=== PATIENT | female | born 1975 | race Caucasian/White ===

== ENCOUNTER 2016-11-13 15:14 | Emergency (ER) | payer MEDICAID ==
[2016-11-13] MEDS ORDERED: Sodium Chloride 0.9% 500 ML IV ONE (15:40)
[2016-11-13] MEDS ORDERED: Sodium Chloride 0.9% 10 ML Syringe FLUSH PRN (15:40)
--- NOTE | 2016-11-13 16:35 | EDM.PDOC ---
ED HPI GENERAL MEDICAL PROBLEM - General Chief Complaint: Neurological Problem Stated Complaint: [facility] Time Seen by Provider: 11/13/16 15:31 Source of Information: Reports: Patient, EMS, RN Notes Reviewed - History of Present Illness INITIAL COMMENTS - FREE TEXT/NARRATIVE: 41-year-old female has been brought in by ambulance after having suffered a seizure while at work. At the time EMS arrived she was on the floor in a position. She was somewhat confused. Mental status did gradually clear while in route here to our ED. Staff at work stated that she did suffer a seizure of fairly short duration. Patient does not recall any of this. 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 She does have a history of known seizure disorder. Her last seizure was about one year ago. Her seizure medication dosage was increased upward very mildly at that time. She has not been recently ill. No recent vomiting diarrhea or other unusual prior symptoms. She does have mild headache. No chest pain or difficulty breathing. No major discomfort upper or lower extremities. - Related Data Allergies Allergy/AdvReac Type Severity Reaction Status Date / Time z-pac Allergy Shortness Uncoded 11/13/16 15:32 of Breath Home Meds: Home Meds . [No Known Home Meds] 11/13/16 [History] ARIPiprazole [Abilify] 2 mg PO DAILY 11/13/16 [History] Citalopram Hydrobromide [Celexa] 40 mg PO DAILY 11/13/16 [History] Meloxicam 0 mg PO DAILY 11/13/16 [History] Omeprazole 20 mg PO DAILY 11/13/16 [History] hydrOXYzine HCl [Atarax] 25 mg PO BEDTIME PRN 11/13/16 [History] lamoTRIgine [Lamotrigine] 200 mg PO DAILY 11/13/16 [History] lamoTRIgine [Lamotrigine] 300 mg PO BEDTIME 11/13/16 [History] traMADol [Ultram] 50 mg PO Q6H PRN 11/13/16 [History] traZODone 100 mg PO BEDTIME 11/13/16 [History] Past Medical History Gastrointestinal History: Reports: GERD Neurological History: Reports: Seizure Psychiatric History: Reports: Anxiety, Depression - Past Surgical History HEENT Surgical History: Reports: Tonsillectomy Female Surgical History: Reports: Section Social & Family History - Tobacco Use Smoking Status *Q: Never Smoker - Caffeine Use Caffeine Use: Reports: Soda - Recreational Drug Use Recreational Drug Use: No ED ROS GENERAL - Review of Systems Review Of Systems: See Below Constitutional: Denies: Fever, Chills HEENT: Reports: No Symptoms Respiratory: Denies: Shortness of Breath, Pleuritic Chest Pain Cardiovascular: Denies: Chest Pain GI/Abdominal: Denies: Abdominal Pain, Nausea, Vomiting Musculoskeletal: Denies: Neck Pain, Shoulder Pain, Back Pain, Joint Pain Skin: Reports: No Symptoms Neurological: Reports: Dizziness, Headache (Mild, improving), Other (Patient was confused initially, that has resolved). Denies: Numbness, Tingling, Trouble Speaking - Physical Exam Exam: See Below General Appearance: Alert, No Apparent Distress Eye Exam: Bilateral Eye: PERRL Ears: Normal External Exam Throat/Mouth: Normal Inspection, Normal Oropharynx. No: Evidence of Tongue Biting Head Exam: Atraumatic. No: Facial Swelling, Facial Tenderness Neck: Supple, Full Range of Motion Respiratory/Chest: Lungs Clear, Normal Breath Sounds Cardiovascular: Regular Rate, Rhythm GI/Abdominal: Soft, Non-Tender Neuro Exam (Abbreviated): Alert, Oriented, No Motor/Sensory Deficits Back Exam: Normal Inspection Extremities: Normal Inspection, Normal Range of Motion Skin Exam: Warm, Dry, Normal Color Course - Vital Signs Last Recorded V/S: Last Vital Signs Temp 97.7 F 11/13/16 15:16 Pulse 108 H 11/13/16 15:16 Resp 20 11/13/16 15:20 BP 141/50 H 11/13/16 15:16 Pulse Ox 96 11/13/16 15:20 - Orders/Labs/Meds Orders: Active Orders 24 hr Category Date Time Status Peripheral IV Care [RC] . DIRECTED Care 11/13/16 15:40 Active Sodium Chloride 0.9% [Saline Flush] Med 11/13/16 15:40 Active 10 ml FLUSH ASDIRECTED PRN Peripheral IV Insertion Adult [OM.PC] Stat Oth 11/13/16 15:40 Ordered Medication Orders Sodium Chloride (Saline Flush) 10 ml FLUSH ASDIRECTED PRN PRN Reason: Keep Vein Open Last Admin: 11/13/16 16:03 Dose: 10 ml Labs: Laboratory Tests 11/13/16 11/13/16 Range/Units 15:50 15:50 WBC 7.20 (3.98-10.04) K/mm3 RBC 4.30 (3.98-5.22) M/mm3 Hgb 11.4 (11.2-15.7) gm/L Hct 36.5 (34.1-44.9) % MCV 84.9 (79.4-94.8) fl MCH 26.5 (25.6-32.2) pg MCHC 31.2 L (32.2-35.5) g/dl RDW Std Deviation 39.8 (36.4-46.3) fL Plt Count 205 (182-369) K/mm3 MPV 9.3 L (9.4-12.3) fl Neut % (Auto) 78.4 H (34.0-71.1) % Lymph % (Auto) 14.3 L (19.3-51.7) % [place] % (Auto) 6.5 (4.7-12.5) % Eos % (Auto) 0 L (0.7-5.8) Baso % (Auto) 0.7 (0.1-1.2) % Neut # (Auto) 5.64 (1.56-6.13) K/mm3 Lymph # (Auto) 1.03 L (1.18-3.74) K/mm3 [place] # (Auto) 0.47 H (0.24-0.36) K/mm3 Eos # (Auto) 0.00 L (0.04-0.36) K/mm3 Baso # (Auto) 0.05 (0.01-0.08) K/mm3 Sodium 140 (136-145) mEq/L Potassium 3.9 (3.5-5.1) mEq/L Chloride 105 (98-107) mEq/L Carbon Dioxide 28 (21-32) mEq/L Anion Gap 10.9 (5-15) BUN 7 (7-18) mg/dL Creatinine 1.1 H (0.55-1.02) mg/dL Est Cr Clr Drug Dosing 62.37 mL/min Estimated GFR (MDRD) 54 (>60) mL/min BUN/Creatinine Ratio 6.4 L (14-18) Glucose 119 H (74-106) mg/dL Calcium 8.3 L (8.5-10.1) mg/dL Total Bilirubin 0.3 (0.2-1.0) mg/dL AST 20 (15-37) U/L ALT 28 (14-59) U/L Alkaline Phosphatase 46 (46-116) U/L Total Protein 6.3 L (6.4-8.2) g/dl Albumin 3.4 (3.4-5.0) g/dl Globulin 2.9 gm/dL Albumin/Globulin Ratio 1.2 (1-2) Meds: Medications Generic Name Dose Route Start Last Admin Trade Name Freq PRN Reason Stop Dose Admin Sodium Chloride 10 ml 11/13/16 15:40 11/13/16 16:03 Saline Flush FLUSH 10 ml ASDIRECTED PRN Administration Keep Vein Open Discontinued Medications Generic Name Dose Route Start Last Admin Trade Name Freq PRN Reason Stop Dose Admin Sodium Chloride 500 mls @ 999 mls/hr 11/13/16 15:40 11/13/16 16:05 Normal Saline IV 11/13/16 16:10 600 mls/hr .BOLUS ONE Infusion - Re-Assessments/Exams Free Text/Narrative Re-Assessment/Exam: 11/13/16 16:35 Labs are all relatively fine. She and her family have recently moved here to the [facility]. She states she needs neurology referral. I will provide a general referral for neurology follow-up. It is Monday. They will need to call tomorrow to get that set up. Departure - Departure Time of Disposition: 16:35 Disposition: Home, Self-Care 01 Condition: Fair Clinical Impression: Seizure - Discharge Information Forms: ED Department Discharge, Return to Work/School Form Additional Instructions: Rest, it is not recommended you work tomorrow. You are medically cleared to return to work Monday. Continue current medications as prescribed. See a Neurologist [facility] as soon as possible. Call [phone] for appointment - My Orders Last 24 Hours: My Active Orders 11/13/16 15:40 Peripheral IV Care [RC] . DIRECTED Sodium Chloride 0.9% [Saline Flush] 10 ml FLUSH ASDIRECTED PRN Peripheral IV Insertion Adult [OM.PC] Stat - Assessment/Plan Last 24 Hours: My Active Orders 11/13/16 15:40 Peripheral IV Care [RC] . DIRECTED Sodium Chloride 0.9% [Saline Flush] 10 ml FLUSH ASDIRECTED PRN Peripheral IV Insertion Adult [OM.PC] Stat
[2016-11-13] MEDS ORDERED: Acetaminophen 325 MG Tab PO ONE (16:59)
[2016-11-13] MEDS ORDERED: Ondansetron 4 MG/2 ML SDV IVPUSH ONE (16:59)
[2016-11-13 17:58] VITALS: BP 120/58
== END 2016-11-13 17:40 | disposition home or self-care (01) ==
LOC: JD.ED 15:14
DX: R56.9 Unspecified convulsions (principal); K21.9 Gastro-esophageal reflux disease without esophagitis; Z79.899 Other long term (current) drug therapy; Z98.890 Other specified postprocedural states; Z88.1 Allergy status to other antibiotic agents
CPT/HCPCS: 36415; 80053; 85025; 96361; 96374; 99285; A9270; J2405; J7040; J7050; 99284

== ENCOUNTER 2017-01-11 19:35 | Emergency (ER) | payer MEDICAID ==
[2017-01-11 19:57] VITALS: BP 119/60
--- NOTE | 2017-01-11 20:50 | EDM.PDOC ---
ED HPI GENERAL MEDICAL PROBLEM - General Chief Complaint: Chest Pain Stated Complaint: [facility] Time Seen by Provider: 01/11/17 19:47 Source of Information: Reports: Patient, Family (, [id number]), RN Notes Reviewed History Limitations: Reports: No Limitations - History of Present Illness INITIAL COMMENTS - FREE TEXT/NARRATIVE: The patient states that she developed left anterior chest pain that extended to the left axilla last night. Initially it was sharp, but has become more of an ache. The pain would come and go. The pain is not pleuritic, and the patient has not identified any modifiers. She has had nausea, and vomited last night. She reports dyspnea, but no cough, and no fever. She states that she took 400 mg ibuprofen around 20:00 last night. The patient was also experiencing a migraine headache, and took 10 mg rizatriptan at 14:00 and 16:30 today. This has resulted in a slight improvement of her headache. No prior similar symptoms. The patient does not have a PCP. Her Neurologist is in [place]. 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 Left Chest Pain Score (Numeric/FACES): 7 - Related Data Allergies Allergy/AdvReac Type Severity Reaction Status Date / Time z-pac Allergy Shortness Uncoded 01/11/17 19:46 of Breath Home Meds: Home Meds Omeprazole 40 mg PO DAILY 11/13/16 [History] hydrOXYzine HCl [Atarax] 25 mg PO BEDTIME PRN 11/13/16 [History] lamoTRIgine [Lamotrigine] 200 mg PO BID 11/13/16 [History] traZODone 100 mg PO BEDTIME 11/13/16 [History] ARIPiprazole [Abilify] 2 mg PO DAILY 01/11/17 [History] Citalopram Hydrobromide [Celexa] 40 mg PO DAILY 01/11/17 [History] traMADol HCl [Tramadol HCl] 50 mg PO ASDIRECTED PRN 01/11/17 [History] Past Medical History Gastrointestinal History: Reports: GERD, PUD Genitourinary History: Reports: Urinary Incontinence Musculoskeletal History: Reports: Fracture Neurological History: Reports: Migraines, Seizure Psychiatric History: Reports: Anxiety, Depression - Past Surgical History HEENT Surgical History: Reports: Tonsillectomy Female Surgical History: Reports: Section (x 1), Hysterectomy Musculoskeletal Surgical History: Reports: Other (See Below) (Left femur drake) Social & Family History - Tobacco Use Smoking Status *Q: Never Smoker Second Hand Smoke Exposure: No - Caffeine Use Caffeine Use: Reports: Soda - Alcohol Use Alcohol Use History: Yes Alcohol Use Frequency: Socially - Recreational Drug Use Recreational Drug Use: No - Living Situation & Occupation Living situation: Reports: , with Spouse Occupation: Employed ([employer]) ED ROS GENERAL - Review of Systems Review Of Systems: See Below Constitutional: Reports: No Symptoms HEENT: Reports: No Symptoms Respiratory: Reports: No Symptoms Cardiovascular: Reports: No Symptoms Endocrine: Reports: No Symptoms GI/Abdominal: Reports: Constipation (chronic) : Reports: No Symptoms Musculoskeletal: Reports: No Symptoms Skin: Reports: No Symptoms Neurological: Reports: No Symptoms Psychiatric: Reports: No Symptoms Hematologic/Lymphatic: Reports: No Symptoms Immunologic: Reports: No Symptoms ED EXAM, GENERAL - Physical Exam Exam: See Below Exam Limited By: No Limitations General Appearance: Alert, WD/WN, No Apparent Distress Eye Exam: Bilateral Eye: Normal Inspection Ears: Normal External Exam, Hearing Grossly Normal Nose: Normal Inspection, No Blood Throat/Mouth: Normal Inspection, Normal Lips, Normal Voice, No Airway Compromise Head: Atraumatic, Normocephalic Neck: Normal Inspection, Full Range of Motion Respiratory/Chest: No Respiratory Distress, Lungs Clear, Normal Breath Sounds, No Accessory Muscle Use, Other (Reproducible tenderness to palpation of the left pectoralis muscle, extending to the left axilla. Pain is also reproduced with the patient flexing her pectoralis muscle against outstretched hands, and crossing her left upper extremity across her chest.) Cardiovascular: Normal Peripheral Pulses, Regular Rate, Rhythm, No Gallop, No JVD, No Murmur, No Rub Peripheral Pulses: 4+: Radial (L), Radial (R) GI/Abdominal: Normal Bowel Sounds, Soft, Non-Tender, No Organomegaly, No Distention, No Abnormal Bruit, No Mass (Female) Exam: Deferred Rectal (Female) Exam: Deferred Back Exam: Normal Inspection, Full Range of Motion, NT Extremities: Normal Inspection, Normal Range of Motion, No Pedal Edema, Normal Capillary Refill Neurological: Alert, Oriented, Normal Cognition, Other (Dysarthric speech) Psychiatric: Normal Affect Skin Exam: Warm, Dry, Intact, Normal Color, No Rash EKG INTERPRETATION EKG Date: 01/11/17 Time: 19:41 Rhythm: NSR Rate (Beats/Min): 73 [place]: Normal P-Wave: Present QRS: Normal ST-T: Normal QT: Normal Comparison: NA - No Prior EKG Course - Vital Signs Last Recorded V/S: Last Vital Signs Temp 37.1 C 01/11/17 19:53 Pulse 75 01/11/17 19:53 Resp 15 01/11/17 19:53 BP 119/60 01/11/17 19:53 Pulse Ox 99 01/11/17 19:53 - Orders/Labs/Meds Orders: Active Orders 24 hr Category Date Time Status EKG Documentation Completion [RC] STAT Care 01/11/17 20:20 Active Chest 2V [CR] Stat Exams 01/11/17 20:39 Taken - Re-Assessments/Exams Free Text/Narrative Re-Assessment/Exam: 01/11/17 21:24 Two-view chest radiograph appears to be grossly normal. Cardiac silhouette is within normal limits. No pulmonary vascular congestion. No pleural effusions. No focal infiltrate. No pneumothorax. Hyperinflation and moderate bilateral diaphragmatic flattening, consistent with COPD, noted. Formal read per the Radiologist pending. 01/11/17 21:31 Test results discussed with the patient, her , and [id number]. Today' s evaluation finds that the patient has left sided chest pain of musculoskeletal etiology. I'm recommending ibuprofen. Departure - Departure Time of Disposition: 21:31 Disposition: Home, Self-Care 01 Condition: Good Clinical Impression: Musculoskeletal chest pain - Discharge Information Instructions: Nonspecific Chest Pain Referrals: PCP,None [Primary Care Provider] - Forms: ED Department Discharge Additional Instructions: You were seen in the emergency room for left-sided chest pain. Workup in the ER included an ECG and a chest x-ray. Your workup was normal. Your pain is not caused by your heart. You do not have pneumonia, or a collapsed lung. Based on your history and physical examination, your chest pain is due to muscle pain on the left side of your chest. We recommend you take [id number] Tylenol or ibuprofen as needed for discomfort. If any other problems, please do not hesitate to return to the ER. - My Orders Last 24 Hours: My Active Orders 01/11/17 20:20 EKG Documentation Completion [RC] STAT 01/11/17 20:39 Chest 2V [CR] Stat - Assessment/Plan Last 24 Hours: My Active Orders 01/11/17 20:20 EKG Documentation Completion [RC] STAT 01/11/17 20:39 Chest 2V [CR] Stat
--- NOTE | 2017-01-12 08:24 | CR ---
Chest: Two views of the chest were obtained. Comparison: No previous chest x-ray. Heart size and mediastinum are within normal limits. Lungs are clear. Bony structures are within normal limits for the patient's age. Impression: 1. Nothing acute is identified on two-view chest x-ray. Diagnostic code #1
== END 2017-01-11 21:59 | disposition home or self-care (01) ==
LOC: JD.ED 19:35
DX: R07.89 Other chest pain (principal); F32.9 Major depressive disorder, single episode, unspecified; K21.9 Gastro-esophageal reflux disease without esophagitis; Z90.710 Acquired absence of both cervix and uterus; Z98.890 Other specified postprocedural states; Z79.899 Other long term (current) drug therapy; Z88.1 Allergy status to other antibiotic agents
CPT/HCPCS: 71020; 71020-26; 93005; 99284; 99285

== ENCOUNTER 2017-02-20 18:06 | Emergency (ER) | payer BC, MEDICAID ==
[2017-02-20 18:14] VITALS: BP 143/77
[2017-02-20] MEDS ORDERED: Sodium Chloride 0.9% 10 ML Syringe FLUSH PRN (18:32)
[2017-02-20] MEDS ORDERED: Prochlorperazine 10 MG/2 ML SDV IVPUSH ONE (18:33)
[2017-02-20] MEDS ORDERED: Ketorolac 30 MG/ML SDV IVPUSH ONE (18:33)
[2017-02-20] MEDS ORDERED: diphenhydrAMINE 50 MG/ML SDV IVPUSH ONE (18:34)
--- NOTE | 2017-02-20 19:10 | EDM.PDOC ---
ED HPI GENERAL MEDICAL PROBLEM - General Chief Complaint: Neurological Problem Stated Complaint: [facility] Time Seen by Provider: 02/20/17 18:22 Source of Information: Reports: Patient, EMS, Family History Limitations: Reports: No Limitations - History of Present Illness INITIAL COMMENTS - FREE TEXT/NARRATIVE: The patient presents after a seizure. She was at work and she did not feel well. She had a tonic clonic seizure lasting a few minutes. She recovered fairly quickly. She has a history of seizures. She is on lamictal 200mg in the morning and 300mg in the evening. She has not missed a dose. She has not been ill. She has no fever, chills, cough, congestion or runny nose. She does have a migraine. She has a history of these and sometimes she will get these before or after a seizure. She has no chest pain or shortness of breath. She is getting enough sleep. She does not drink much and she did not drink recently. Onset: Sudden Duration: Hour(s): Location: Reports: Generalized Quality: Reports: Other (shakine) Severity: Moderate Improves with: Reports: None Worsens with: Reports: None Associated Symptoms: Reports: Headaches. Denies: Chest Pain, Fever/Chills, Nausea/Vomiting, Shortness of Breath Headache Pain Score (Numeric/FACES): 8 - Related Data Allergies Allergy/AdvReac Type Severity Reaction Status Date / Time z-pac Allergy Shortness Uncoded 01/11/17 19:46 of Breath Home Meds: Home Meds Omeprazole 40 mg PO DAILY 11/13/16 [History] hydrOXYzine HCl [Atarax] 25 mg PO BEDTIME PRN 11/13/16 [History] lamoTRIgine [Lamotrigine] 200 mg PO BID 11/13/16 [History] traZODone 100 mg PO BEDTIME 11/13/16 [History] ARIPiprazole [Abilify] 2 mg PO DAILY 01/11/17 [History] Citalopram Hydrobromide [Celexa] 40 mg PO DAILY 01/11/17 [History] traMADol HCl [Tramadol HCl] 50 mg PO ASDIRECTED PRN 01/11/17 [History] Past Medical History Gastrointestinal History: Reports: GERD, PUD Genitourinary History: Reports: Urinary Incontinence Musculoskeletal History: Reports: Fracture Neurological History: Reports: Migraines, Seizure Psychiatric History: Reports: Anxiety, Depression - Past Surgical History HEENT Surgical History: Reports: Tonsillectomy Female Surgical History: Reports: Section, Hysterectomy Social & Family History - Family History Family Medical History: Noncontributory - Tobacco Use Smoking Status *Q: Never Smoker Second Hand Smoke Exposure: No - Caffeine Use Caffeine Use: Reports: Soda - Recreational Drug Use Recreational Drug Use: No - Living Situation & Occupation Living situation: Reports: , with Spouse Occupation: Employed ([employer]) ED [facility] GENERAL - Review of Systems Review Of Systems: See Below Constitutional: Reports: No Symptoms HEENT: Reports: No Symptoms Respiratory: Reports: No Symptoms Cardiovascular: Reports: No Symptoms Endocrine: Reports: No Symptoms GI/Abdominal: Reports: No Symptoms : Reports: No Symptoms Musculoskeletal: Reports: No Symptoms Neurological: Reports: Seizure - Physical Exam Exam: See Below Exam Limited By: No Limitations General Appearance: Alert, No Apparent Distress Ears: Normal External Exam Nose: Normal Inspection Head Exam: Atraumatic, Normocephalic Neck: Normal Inspection Respiratory/Chest: No Respiratory Distress, Lungs Clear, Normal Breath Sounds Cardiovascular: Regular Rate, Rhythm, No Edema, No Murmur GI/Abdominal: Soft, Non-Tender, No Organomegaly, No Mass Neuro Exam (Abbreviated): Alert, Oriented, No Motor/Sensory Deficits Course - Vital Signs Last Recorded V/S: Last Vital Signs Temp 97.6 F 02/20/17 18:11 Pulse 105 H 02/20/17 18:11 Resp 22 H 02/20/17 18:11 BP 143/77 H 02/20/17 18:11 Pulse Ox 99 02/20/17 18:11 - Orders/Labs/Meds Orders: Active Orders 24 hr Category Date Time Status Cardiac Monitoring [RC] . DIRECTED Care 02/20/17 18:32 Active Peripheral IV Care [RC] . DIRECTED Care 02/20/17 18:33 Active HYDROmorphone [Dilaudid] Med 02/20/17 19:28 Once 1 mg IVPUSH ONETIME ONE Sodium Chloride 0.9% [Saline Flush] Med 02/20/17 18:32 Active 10 ml FLUSH ASDIRECTED PRN Peripheral IV Insertion Adult [OM.PC] Stat Oth 02/20/17 18:32 Ordered Medication Orders Sodium Chloride (Saline Flush) 10 ml FLUSH ASDIRECTED PRN PRN Reason: Keep Vein Open Last Admin: 02/20/17 18:40 Dose: 10 ml Labs: Laboratory Tests 02/20/17 02/20/17 Range/Units 18:40 18:40 WBC 6.85 (3.98-10.04) K/mm3 RBC 4.33 (3.98-5.22) M/mm3 Hgb 12.0 (11.2-15.7) gm/L Hct 36.8 (34.1-44.9) % MCV 85.0 (79.4-94.8) fl MCH 27.7 (25.6-32.2) pg MCHC 32.6 (32.2-35.5) g/dl RDW Std Deviation 42.4 (36.4-46.3) fL Plt Count 263 (182-369) K/mm3 MPV 9.2 L (9.4-12.3) fl Neut % (Auto) 78.0 H (34.0-71.1) % Lymph % (Auto) 14.5 L (19.3-51.7) % [place] % (Auto) 5.4 (4.7-12.5) % Eos % (Auto) 1.6 (0.7-5.8) Baso % (Auto) 0.4 (0.1-1.2) % Neut # (Auto) 5.34 (1.56-6.13) K/mm3 Lymph # (Auto) 0.99 L (1.18-3.74) K/mm3 [place] # (Auto) 0.37 H (0.24-0.36) K/mm3 Eos # (Auto) 0.11 (0.04-0.36) K/mm3 Baso # (Auto) 0.03 (0.01-0.08) K/mm3 Sodium 144 (136-145) mEq/L Potassium 3.8 (3.5-5.1) mEq/L Chloride 106 (98-107) mEq/L Carbon Dioxide 23 (21-32) mEq/L Anion Gap 18.8 H (5-15) BUN 7 (7-18) mg/dL Creatinine 0.9 (0.55-1.02) mg/dL Est Cr Clr Drug Dosing 76.23 mL/min Estimated GFR (MDRD) > 60 (>60) mL/min BUN/Creatinine Ratio 7.8 L (14-18) Glucose 105 (74-106) mg/dL Calcium 8.4 L (8.5-10.1) mg/dL Magnesium 2.0 (1.8-2.4) mg/dl Total Bilirubin 0.2 (0.2-1.0) mg/dL AST 19 (15-37) U/L ALT 28 (14-59) U/L Alkaline Phosphatase 41 L (46-116) U/L Total Protein 6.9 (6.4-8.2) g/dl Albumin 3.9 (3.4-5.0) g/dl Globulin 3.0 gm/dL Albumin/Globulin Ratio 1.3 (1-2) Meds: Medications Generic Name Dose Route Start Last Admin Trade Name Freq PRN Reason Stop Dose Admin Sodium Chloride 10 ml 02/20/17 18:32 02/20/17 18:40 Saline Flush FLUSH 10 ml ASDIRECTED PRN Administration Keep Vein Open Discontinued Medications Generic Name Dose Route Start Last Admin Trade Name Freq PRN Reason Stop Dose Admin Diphenhydramine HCl 50 mg 02/20/17 18:34 02/20/17 18:41 Benadryl IVPUSH 02/20/17 18:35 50 mg ONETIME ONE Administration Ketorolac Tromethamine 30 mg 02/20/17 18:33 02/20/17 18:44 Toradol IVPUSH 02/20/17 18:34 30 mg ONETIME ONE Administration Prochlorperazine Edisylate 10 mg 02/20/17 18:33 02/20/17 18:47 Compazine IVPUSH 02/20/17 18:34 10 mg ONETIME ONE Administration - Re-Assessments/Exams Free Text/Narrative Re-Assessment/Exam: 02/20/17 19:22 I ordered an IV saline lock, toradol 30mg IV, benadryl 50mg IV, compazine 10mg IV and labs. Her CBC and CMP all look good. She has in appointment with a neurologist in about 1 month. 02/20/17 19:29 Her CBC and CMP look good. She still has a headache but it is a little better. I ordered dilaudid 1mg IV. I will discharge her home. I will not change her meds. I will see what the neurologist wants to do. Departure - Departure Time of Disposition: 19:35 Disposition: Home, Self-Care 01 Condition: Good Clinical Impression: Seizure Migraine Qualifiers: Migraine type: other Status migrainosus presence: without status migrainosus Intractability: not intractable Qualified Code(s): G43.809 - Other migraine, not intractable, without status migrainosus - Discharge Information Referrals: PCP,None [Primary Care Provider] - Sanjuana Fuentes MD [Physician] - Forms: ED Department Discharge Additional Instructions: Take your medication as prescribed but do not take any ultram or tramadol. That can cause seizures. Get plenty of rest and eat a balanced diet. Pleas return if you are worse. Follow up with Dr Fuentes. She is a family practice physician in out clinic within 1 week. Please keep your appointment with your neurologist in [place]. It is very hard to get into one. - My Orders Last 24 Hours: My Active Orders 02/20/17 18:32 Cardiac Monitoring [RC] . DIRECTED Sodium Chloride 0.9% [Saline Flush] 10 ml FLUSH ASDIRECTED PRN Peripheral IV Insertion Adult [OM.PC] Stat 02/20/17 18:33 Peripheral IV Care [RC] . DIRECTED 02/20/17 19:28 HYDROmorphone [Dilaudid] 1 mg IVPUSH ONETIME ONE - Assessment/Plan Last 24 Hours: My Active Orders 02/20/17 18:32 Cardiac Monitoring [RC] . DIRECTED Sodium Chloride 0.9% [Saline Flush] 10 ml FLUSH ASDIRECTED PRN Peripheral IV Insertion Adult [OM.PC] Stat 02/20/17 18:33 Peripheral IV Care [RC] . DIRECTED 02/20/17 19:28 HYDROmorphone [Dilaudid] 1 mg IVPUSH ONETIME ONE
[2017-02-20] MEDS ORDERED: HYDROmorphone 1 MG/ML Syringe IVPUSH ONE (19:28)
== END 2017-02-20 20:00 | disposition home or self-care (01) ==
LOC: JD.ED 18:06
DX: R56.9 Unspecified convulsions (principal); G43.809 Other migraine, not intractable, without status migrainosus; Z79.899 Other long term (current) drug therapy; K21.9 Gastro-esophageal reflux disease without esophagitis; F41.9 Anxiety disorder, unspecified; F32.9 Major depressive disorder, single episode, unspecified
CPT/HCPCS: 36415; 80053; 83735; 85025; 96374; 96375; 99284; J0780; J1170; J1200; J1885; J7050

== ENCOUNTER 2017-03-01 12:48 | Emergency (ER) | payer BC, MEDICAID ==
[2017-03-01 13:01] VITALS: BP 110/36
[2017-03-01] MEDS ORDERED: Sodium Chloride 0.9% 10 ML Syringe FLUSH PRN (13:19)
[2017-03-01] MEDS ORDERED: diphenhydrAMINE 50 MG/ML SDV IVPUSH ONE (13:19)
[2017-03-01] MEDS ORDERED: Ketorolac 30 MG/ML SDV IVPUSH ONE (13:19)
[2017-03-01] MEDS ORDERED: Metoclopramide 10 MG/2 ML SDV IVPUSH ONE (13:19)
[2017-03-01] MEDS ORDERED: Sodium Chloride 0.9% 1,000 ML IV ONE (13:20)
--- NOTE | 2017-03-01 14:24 | EDM.PDOC ---
ED HPI GENERAL MEDICAL PROBLEM - General Chief Complaint: Headache Stated Complaint: MIGRAINE Time Seen by Provider: 03/01/17 13:00 Source of Information: Reports: Patient History Limitations: Reports: No Limitations - History of Present Illness INITIAL COMMENTS - FREE TEXT/NARRATIVE: 41-year-old female presents for evaluation treatment of a migraine headache. Patient reports that she has had a "steady " migraine headache that started around 1900 last night. She states that she took some Tylenol last night without any relief. She has not taken anything today. She has a history of migraine headaches. Reports this is similar but does feel worse than normal. She reports associated symptoms of shortness of breath and chest pain. She denies any vision changes, vomiting or any recent seizures. Patient denies any recent fevers, cough or cold symptoms. Patient reports stressful situations seem to produce a migraines. Reports that she did feel stressed last measured close by herself. Patient has a past medical history of a seizure disorder. she has been taking her seizure medications as instructed. She has follow-up with neurology in one month. Headache Pain Score (Numeric/FACES): 10 - Related Data Allergies Allergy/AdvReac Type Severity Reaction Status Date / Time z-pac Allergy Shortness Uncoded 01/11/17 19:46 of Breath Home Meds: Home Meds Omeprazole 40 mg PO DAILY 11/13/16 [History] hydrOXYzine HCl [Atarax] 25 mg PO BEDTIME PRN 11/13/16 [History] lamoTRIgine [Lamotrigine] 300 mg PO BEDTIME 11/13/16 [History] traZODone 100 mg PO BEDTIME 11/13/16 [History] ARIPiprazole [Abilify] 2 mg PO DAILY 01/11/17 [History] Citalopram Hydrobromide [Celexa] 40 mg PO DAILY 01/11/17 [History] lamoTRIgine 200 mg PO DAILY 03/01/17 [History] Past Medical History Gastrointestinal History: Reports: GERD, PUD Genitourinary History: Reports: Urinary Incontinence Musculoskeletal History: Reports: Fracture Neurological History: Reports: Migraines, Seizure Psychiatric History: Reports: Anxiety, Depression - Past Surgical History HEENT Surgical History: Reports: Tonsillectomy Female Surgical History: Reports: Section, Hysterectomy Social & Family History - Family History Family Medical History: Noncontributory - Tobacco Use Smoking Status *Q: Never Smoker Second Hand Smoke Exposure: No - Caffeine Use Caffeine Use: Reports: Soda - Recreational Drug Use Recreational Drug Use: No - Living Situation & Occupation Living situation: Reports: , with Spouse Occupation: Employed ([employer]) ED ROS GENERAL - Review of Systems Review Of Systems: See Below Constitutional: Denies: Fever Respiratory: Reports: Shortness of Breath. Denies: Cough Cardiovascular: Reports: Chest Pain GI/Abdominal: Reports: Nausea. Denies: Vomiting Neurological: Reports: Headache. Denies: Seizure (non recently; hx of seizures) , Syncope - Physical Exam Exam: See Below Exam Limited By: No Limitations General Appearance: Alert, WD/WN, No Apparent Distress Eye Exam: Bilateral Eye: Normal Inspection, PERRL Ears: Normal External Exam, Normal Canal, Hearing Grossly Normal, Normal TMs Nose: Normal Inspection Throat/Mouth: Normal Inspection, Normal Lips, Normal Voice, No Airway Compromise Head Exam: Atraumatic, Normocephalic Neck: Normal Inspection, Full Range of Motion Respiratory/Chest: No Respiratory Distress, Lungs Clear, Normal Breath Sounds Cardiovascular: Normal Peripheral Pulses, Regular Rate, Rhythm, No Murmur Neuro Exam (Abbreviated): Alert, Oriented, Normal Cognition, Normal Gait, Other (normal heel to camara testing, normal finger to nose testing) Psychiatric: Normal Affect, Normal Mood Skin Exam: Warm, Dry, Normal Color EKG INTERPRETATION EKG Date: 03/01/17 Time: 13:25 Rhythm: NSR Rate (Beats/Min): 50 [place]: Normal P-Wave: Present QRS: Normal ST-T: Normal QT: Normal EKG Interpretation Comments: NSR at 50 bpm. No acute changes. Reviewed by myself and Dr. Najera. Course - Vital Signs Last Recorded V/S: Last Vital Signs Temp 36.4 C 03/01/17 12:55 Pulse 64 03/01/17 12:55 Resp 19 03/01/17 12:55 BP 110/36 L 03/01/17 12:55 Pulse Ox 97 03/01/17 12:55 - Orders/Labs/Meds Orders: Active Orders 24 hr Category Date Time Status EKG 12 Lead [EKG Documentation Completion] [RC] STAT Care 03/01/17 13:18 Active Peripheral IV Care [RC] . DIRECTED Care 03/01/17 13:19 Active Sodium Chloride 0.9% [Saline Flush] Med 03/01/17 13:19 Active 10 ml FLUSH ASDIRECTED PRN Peripheral IV Insertion Adult [OM.PC] Routine Oth 03/01/17 13:18 Ordered Medication Orders Sodium Chloride (Saline Flush) 10 ml FLUSH ASDIRECTED PRN PRN Reason: Keep Vein Open Last Admin: 03/01/17 13:39 Dose: 10 ml Labs: Laboratory Tests 03/01/17 03/01/17 Range/Units 13:50 13:50 WBC 6.42 (3.98-10.04) K/mm3 RBC 4.36 (3.98-5.22) M/mm3 Hgb 12.2 (11.2-15.7) gm/L Hct 37.8 (34.1-44.9) % MCV 86.7 (79.4-94.8) fl MCH 28.0 (25.6-32.2) pg MCHC 32.3 (32.2-35.5) g/dl RDW Std Deviation 42.6 (36.4-46.3) fL Plt Count 227 (182-369) K/mm3 MPV 9.3 L (9.4-12.3) fl Neut % (Auto) 63.7 (34.0-71.1) % Lymph % (Auto) 27.1 (19.3-51.7) % [place] % (Auto) 6.5 (4.7-12.5) % Eos % (Auto) 1.9 (0.7-5.8) Baso % (Auto) 0.6 (0.1-1.2) % Neut # (Auto) 4.09 (1.56-6.13) K/mm3 Lymph # (Auto) 1.74 (1.18-3.74) K/mm3 [place] # (Auto) 0.42 H (0.24-0.36) K/mm3 Eos # (Auto) 0.12 (0.04-0.36) K/mm3 Baso # (Auto) 0.04 (0.01-0.08) K/mm3 Sodium 143 (136-145) mEq/L Potassium 4.1 (3.5-5.1) mEq/L Chloride 106 (98-107) mEq/L Carbon Dioxide 27 (21-32) mEq/L Anion Gap 14.1 (5-15) BUN 10 (7-18) mg/dL Creatinine 0.7 (0.55-1.02) mg/dL Est Cr Clr Drug Dosing 98.01 mL/min Estimated GFR (MDRD) > 60 (>60) mL/min BUN/Creatinine Ratio 14.3 (14-18) Glucose 93 (74-106) mg/dL Calcium 8.5 (8.5-10.1) mg/dL Total Bilirubin 0.4 (0.2-1.0) mg/dL AST 17 (15-37) U/L ALT 22 (14-59) U/L Alkaline Phosphatase 36 L (46-116) U/L Troponin I < 0.017 (0.00-0.056) ng/mL Total Protein 6.5 (6.4-8.2) g/dl Albumin 3.7 (3.4-5.0) g/dl Globulin 2.8 gm/dL Albumin/Globulin Ratio 1.3 (1-2) Meds: Medications Generic Name Dose Route Start Last Admin Trade Name Freq PRN Reason Stop Dose Admin Sodium Chloride 10 ml 03/01/17 13:19 03/01/17 13:39 Saline Flush FLUSH 10 ml ASDIRECTED PRN Administration Keep Vein Open Discontinued Medications Generic Name Dose Route Start Last Admin Trade Name Freq PRN Reason Stop Dose Admin Diphenhydramine HCl 50 mg 03/01/17 13:19 03/01/17 13:48 Benadryl IVPUSH 03/01/17 13:20 50 mg ONETIME ONE Administration Sodium Chloride 1,000 mls @ 999 mls/hr 03/01/17 13:20 03/01/17 13:45 Normal Saline IV 03/01/17 14:20 999 mls/hr ONETIME ONE Administration Ketorolac Tromethamine 30 mg 03/01/17 13:19 03/01/17 13:50 Toradol IVPUSH 03/01/17 13:20 30 mg ONETIME ONE Administration Metoclopramide HCl 10 mg 03/01/17 13:19 03/01/17 13:46 Reglan IVPUSH 03/01/17 13:20 10 mg ONETIME ONE Administration - Radiology Interpretation Free Text/Narrative:: chest xray [address] Gallo: 1. Nothing acute is seen on portable chest x-ray - Re-Assessments/Exams Free Text/Narrative Re-Assessment/Exam: 03/01/17 14:42 I reviewed the ekg, chest xray and labs with the patient. Headache is now 2 out of 10. She feels comfortable going home at this time. Chest pain has resolved. I will discharge her home. She has a family practice provider is trying to establish with. She is also seen neurology within 1 month. Discharge instructions as documented. Departure - Departure Time of Disposition: 14:42 Disposition: Home, Self-Care 01 Condition: Good Clinical Impression: Musculoskeletal chest pain Migraine Qualifiers: Migraine type: other Status migrainosus presence: without status migrainosus Intractability: not intractable Qualified Code(s): G43.809 - Other migraine, not intractable, without status migrainosus - Discharge Information Instructions: Migraine Headache Referrals: PCP,None [Primary Care Provider] - Forms: ED Department Discharge Additional Instructions: Continue with your current plan of care. [id number] Tylenol or Motrin as needed for discomfort. Go home and rest in a dark quiet room. Make sure drinking plenty of fluids. Please return to the ER if your symptoms change or worsen. - My Orders Last 24 Hours: My Active Orders 03/01/17 13:18 EKG 12 Lead [EKG Documentation Completion] [RC] STAT Peripheral IV Insertion Adult [OM.PC] Routine 03/01/17 13:19 Peripheral IV Care [RC] . DIRECTED Sodium Chloride 0.9% [Saline Flush] 10 ml FLUSH ASDIRECTED PRN - Assessment/Plan Last 24 Hours: My Active Orders 03/01/17 13:18 EKG 12 Lead [EKG Documentation Completion] [RC] STAT Peripheral IV Insertion Adult [OM.PC] Routine 03/01/17 13:19 Peripheral IV Care [RC] . DIRECTED Sodium Chloride 0.9% [Saline Flush] 10 ml FLUSH ASDIRECTED PRN
--- NOTE | 2017-03-01 14:59 | CR ---
Chest: Portable view of the chest was obtained. Comparison: Prior chest x-ray of 01/11/17. Heart size and mediastinum are normal. Lungs are clear. Bony structures are grossly intact. Impression: 1. Nothing acute is seen on portable chest x-ray. Diagnostic code #1
== END 2017-03-01 15:10 | disposition home or self-care (01) ==
LOC: JD.ED 12:48
DX: G43.809 Other migraine, not intractable, without status migrainosus (principal); R07.89 Other chest pain; K21.9 Gastro-esophageal reflux disease without esophagitis; Z88.1 Allergy status to other antibiotic agents; Z79.899 Other long term (current) drug therapy
CPT/HCPCS: 36415; 71010; 80053; 84484; 85025; 93005; 96361; 96374; 96375; 99285; J1200; J1885; J2765; J7040; J7050; 93010; 99284

== ENCOUNTER 2018-06-20 09:37 | Emergency (ER) | payer BC, MEDICAID ==
[2018-06-20] MEDS ORDERED: Sodium Chloride 0.9% 10 ML Syringe FLUSH PRN (09:43)
[2018-06-20 09:51] VITALS: BP 130/64
--- NOTE | 2018-06-20 10:12 | CT ---
Head CT Technique: Multiple axial sections through the brain were obtained. Intravenous contrast was not utilized. Comparison: Previous MRI brain of 04/07/17. Findings: Ventricles along with basal cisterns and sulci over the convexities are within normal limits. Mild asymmetry of the lateral ventricles is noted which is a normal variant and stable from previous MRI. No abnormal parenchymal densities are seen. No evidence of intracranial hemorrhage. No midline shift or mass effect is seen. Artifact is noted from ear jewelry. Bone window settings were reviewed which show no acute calvarial abnormality. Visualized sinuses show nothing acute. Impression: 1. Incidental findings. Nothing acute is seen on noncontrast head CT exam. Diagnostic code #2
--- NOTE | 2018-06-20 12:20 | EDM.PDOC ---
ED HPI GENERAL MEDICAL PROBLEM - General Chief Complaint: Neuro Symptoms/Deficits Stated Complaint: STROKE SYMPTOMS Time Seen by Provider: 06/20/18 09:43 Source of Information: Reports: Patient History Limitations: Reports: No Limitations - History of Present Illness INITIAL COMMENTS - FREE TEXT/NARRATIVE: The patient presents with a seizure. She was at work and did not feel good. She was going to go home but she felt she could not drive so she called her . He picked her up and she had a 5 minute tonic clonic generalized seizure. He brought her to the ER. She was postictal when she arrived. She was confused and slightly combative. She had no neuro deficits. She has a history of seizures and she is on a couple meds. There has been no changes to her meds and she has not missed any doses. She had her upper teeth removed last week and she has not been eating or drinking like normal. Onset: Sudden Duration: Minutes: Location: Reports: Generalized Severity: Severe Improves with: Reports: None Worsens with: Reports: None Associated Symptoms: Reports: No Other Symptoms - Related Data Allergies Allergy/AdvReac Type Severity Reaction Status Date / Time azithromycin Allergy Shortness Verified 06/20/18 09:44 of Breath Home Meds: Home Meds Omeprazole 40 mg PO DAILY 11/13/16 [History] hydrOXYzine HCl [Atarax] 25 mg PO BEDTIME PRN 11/13/16 [History] lamoTRIgine [Lamotrigine] 300 mg PO BEDTIME 11/13/16 [History] traZODone 100 mg PO BEDTIME 11/13/16 [History] ARIPiprazole [Abilify] 2 mg PO DAILY 01/11/17 [History] Citalopram Hydrobromide [Celexa] 40 mg PO DAILY 01/11/17 [History] lamoTRIgine 200 mg PO DAILY 03/01/17 [History] Past Medical History HEENT History: Reports: Impaired Vision Gastrointestinal History: Reports: GERD, PUD Genitourinary History: Reports: Urinary Incontinence 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: Musculoskeletal History: Reports: Fracture Neurological History: Reports: Migraines, Seizure Psychiatric History: Reports: Anxiety, Depression - Past Surgical History HEENT Surgical History: Reports: Oral Surgery, Tonsillectomy Female Surgical History: Reports: Section, Hysterectomy Social & Family History - Family History Family Medical History: Noncontributory - Tobacco Use Smoking Status *Q: Never Smoker - Caffeine Use Caffeine Use: Reports: Energy Drinks, Soda - Recreational Drug Use Recreational Drug Use: No - Living Situation & Occupation Living situation: Reports: , with Spouse Occupation: Employed ([employer]) ED ROS GENERAL - Review of Systems Review Of Systems: See Below Constitutional: Reports: No Symptoms HEENT: Reports: No Symptoms Respiratory: Reports: No Symptoms Cardiovascular: Reports: No Symptoms Endocrine: Reports: No Symptoms GI/Abdominal: Reports: No Symptoms : Reports: No Symptoms Neurological: Reports: Seizure - Physical Exam Exam: See Below Exam Limited By: No Limitations General Appearance: Alert, No Apparent Distress Ears: Normal External Exam Nose: Normal Inspection Head Exam: Atraumatic, Normocephalic Neck: Normal Inspection Respiratory/Chest: No Respiratory Distress, Lungs Clear, Normal Breath Sounds Cardiovascular: Regular Rate, Rhythm, No Edema, No Murmur GI/Abdominal: Soft, Non-Tender, No Organomegaly, No Mass Neuro Exam (Abbreviated): Alert, Confused EKG INTERPRETATION EKG Date: 06/20/18 Time: 10:06 Rhythm: NSR Rate (Beats/Min): 87 [place]: Normal P-Wave: Present QRS: Normal ST-T: Normal QT: Normal Course - Vital Signs Last Recorded V/S: Last Vital Signs Temp 97.8 F 06/20/18 09:49 Pulse 92 06/20/18 09:49 Resp 16 06/20/18 09:49 BP 130/64 06/20/18 09:49 Pulse Ox 98 06/20/18 09:49 - Orders/Labs/Meds Orders: Active Orders 24 hr Category Date Time Status Cardiac Monitoring [RC] . DIRECTED Care 06/20/18 09:43 Active EKG Documentation Completion [RC] STAT Care 06/20/18 09:43 Active Peripheral IV Care [RC] . DIRECTED Care 06/20/18 09:43 Active Sodium Chloride 0.9% [Saline Flush] Med 06/20/18 09:43 Active 10 ml FLUSH ASDIRECTED PRN Peripheral IV Insertion Adult [OM.PC] Stat Oth 06/20/18 09:43 Ordered Medication Orders Sodium Chloride (Saline Flush) 10 ml FLUSH ASDIRECTED PRN PRN Reason: Keep Vein Open Last Admin: 06/20/18 10:01 Dose: 10 ml Labs: Laboratory Tests 06/20/18 06/20/18 06/20/18 Range/Units 09:50 09:50 11:05 WBC 7.76 (3.98-10.04) K/mm3 RBC 4.55 (3.98-5.22) M/mm3 Hgb 12.9 (11.2-15.7) gm/L Hct 40.1 (34.1-44.9) % MCV 88.1 (79.4-94.8) fl MCH 28.4 (25.6-32.2) pg MCHC 32.2 (32.2-35.5) g/dl RDW Std Deviation 40.6 (36.4-46.3) fL Plt Count 267 (182-369) K/mm3 MPV 8.8 L (9.4-12.3) fl Neut % (Auto) 73.7 H (34.0-71.1) % Lymph % (Auto) 21.4 (19.3-51.7) % [place] % (Auto) 3.5 L (4.7-12.5) % Eos % (Auto) 0.9 (0.7-5.8) Baso % (Auto) 0.4 (0.1-1.2) % Neut # (Auto) 5.72 (1.56-6.13) K/mm3 Lymph # (Auto) 1.66 (1.18-3.74) K/mm3 [place] # (Auto) 0.27 (0.24-0.36) K/mm3 Eos # (Auto) 0.07 (0.04-0.36) K/mm3 Baso # (Auto) 0.03 (0.01-0.08) K/mm3 Sodium 141 (136-145) mEq/L Potassium 3.2 L (3.5-5.1) mEq/L Chloride 105 (98-107) mEq/L Carbon Dioxide 17 L (21-32) mEq/L Anion Gap 22.2 H (5-15) BUN 10 (7-18) mg/dL Creatinine 1.2 H (0.55-1.02) mg/dL Est Cr Clr Drug Dosing 58.18 mL/min Estimated GFR (MDRD) 49 (>60) mL/min BUN/Creatinine Ratio 8.3 L (14-18) Glucose 149 H (74-106) mg/dL Calcium 8.8 (8.5-10.1) mg/dL Magnesium 2.2 (1.8-2.4) mg/dl Total Bilirubin 0.3 (0.2-1.0) mg/dL AST 16 (15-37) U/L ALT 19 (14-59) U/L Alkaline Phosphatase 59 (46-116) U/L Troponin I < 0.017 (0.00-0.056) ng/mL Total Protein 7.4 (6.4-8.2) g/dl Albumin 4.0 (3.4-5.0) g/dl Globulin 3.4 gm/dL Albumin/Globulin Ratio 1.2 (1-2) Urine Color Yellow (Yellow) Urine Appearance Slt cloudy H (Clear) Urine pH 6.0 (5.0-8.0) Ur Specific [place] > or = 1.030 (1.005-1.030) Urine Protein 2+ H (Negative) Urine Glucose (UA) Trace H (Negative) Urine Ketones Trace H (Negative) Urine Occult Blood Negative (Negative) Urine Nitrite Negative (Negative) Urine Bilirubin Negative (Negative) Urine Urobilinogen 0.2 (0.2-1.0) Ur Leukocyte Esterase Negative (Negative) Urine RBC 0-5 (0-5) /hpf Urine WBC 0-5 (0-5) /hpf Ur Epithelial Cells 0-5 (0-5) /hpf Urine Bacteria Few (FEW) /hpf Urine Mucus Not seen (FEW) /hpf Urine Opiates Screen (BBYZFQ=969) Ur Buprenorphine Scrn (CUTOFF=10) Ur Oxycodone Screen (GLK4VP=888) Urine Methadone Screen (JDKSTK=467) Ur Propoxyphene Screen (DNEVPH=859) Ur Barbiturates Screen (NYBTXK=178) Ur Tricyclics Screen (VDORXX=271) Ur Phencyclidine Scrn (CUTOFF=25) Ur Amphetamine Screen (CBKREN=345) U Methamphetamines Scrn (GFSBIL=283) U Benzodiazepines Scrn (ALQSQB=926) U Cocaine Metab Screen (GNHYGR=161) U Marijuana (THC) Screen (CUTOFF=50) Ethyl Alcohol 0.00 (0.00) gm% 06/20/18 Range/Units 11:05 WBC (3.98-10.04) K/mm3 RBC (3.98-5.22) M/mm3 Hgb (11.2-15.7) gm/L Hct (34.1-44.9) % MCV (79.4-94.8) fl MCH (25.6-32.2) pg MCHC (32.2-35.5) g/dl RDW Std Deviation (36.4-46.3) fL Plt Count (182-369) K/mm3 MPV (9.4-12.3) fl Neut % (Auto) (34.0-71.1) % Lymph % (Auto) (19.3-51.7) % [place] % (Auto) (4.7-12.5) % Eos % (Auto) (0.7-5.8) Baso % (Auto) (0.1-1.2) % Neut # (Auto) (1.56-6.13) K/mm3 Lymph # (Auto) (1.18-3.74) K/mm3 [place] # (Auto) (0.24-0.36) K/mm3 Eos # (Auto) (0.04-0.36) K/mm3 Baso # (Auto) (0.01-0.08) K/mm3 Sodium (136-145) mEq/L Potassium (3.5-5.1) mEq/L Chloride (98-107) mEq/L Carbon Dioxide (21-32) mEq/L Anion Gap (5-15) BUN (7-18) mg/dL Creatinine (0.55-1.02) mg/dL Est Cr Clr Drug Dosing mL/min Estimated GFR (MDRD) (>60) mL/min BUN/Creatinine Ratio (14-18) Glucose (74-106) mg/dL Calcium (8.5-10.1) mg/dL Magnesium (1.8-2.4) mg/dl Total Bilirubin (0.2-1.0) mg/dL AST (15-37) U/L ALT (14-59) U/L Alkaline Phosphatase (46-116) U/L Troponin I (0.00-0.056) ng/mL Total Protein (6.4-8.2) g/dl Albumin (3.4-5.0) g/dl Globulin gm/dL Albumin/Globulin Ratio (1-2) Urine Color (Yellow) Urine Appearance (Clear) Urine pH (5.0-8.0) Ur Specific [place] (1.005-1.030) Urine Protein (Negative) Urine Glucose (UA) (Negative) Urine Ketones (Negative) Urine Occult Blood (Negative) Urine Nitrite (Negative) Urine Bilirubin (Negative) Urine Urobilinogen (0.2-1.0) Ur Leukocyte Esterase (Negative) Urine RBC (0-5) /hpf Urine WBC (0-5) /hpf Ur Epithelial Cells (0-5) /hpf Urine Bacteria (FEW) /hpf Urine Mucus (FEW) /hpf Urine Opiates Screen Presumptive positive H (HRHCUI=733) Ur Buprenorphine Scrn Negative (CUTOFF=10) Ur Oxycodone Screen Negative (RTD8AC=763) Urine Methadone Screen Negative (ARORCX=569) Ur Propoxyphene Screen Negative (APKJJR=106) Ur Barbiturates Screen Negative (KQPQEP=314) Ur Tricyclics Screen Negative (ZRVVZY=027) Ur Phencyclidine Scrn Negative (CUTOFF=25) Ur Amphetamine Screen Negative (IDLAOP=362) U Methamphetamines Scrn Negative (AGNBAU=924) U Benzodiazepines Scrn Negative (THQGKW=879) U Cocaine Metab Screen Negative (PWMTMZ=904) U Marijuana (THC) Screen Negative (CUTOFF=50) Ethyl Alcohol (0.00) gm% Meds: Medications Generic Name Dose Route Start Last Admin Trade Name Freq PRN Reason Stop Dose Admin Sodium Chloride 10 ml 06/20/18 09:43 06/20/18 10:01 Saline Flush FLUSH 10 ml ASDIRECTED PRN Administration Keep Vein Open - Re-Assessments/Exams Free Text/Narrative Re-Assessment/Exam: 06/20/18 12:22 I ordered an IV saline lock, EKG, CT of her head and labs. Her EKG shows a NSR with no acute changes. Her CT shows nothing acute. Her CBC looks good. Her K was a little low at 3.2. Her anion gap was elevated at 22.2. Her troponin was negative. Her creatinine was elevated at 1.2. Her glucose was 149. Her opiates were positive in her UDS. Her ETOH was normal. Her UA shows no UTI. She is drinking some water now. I will discharge her home. Departure - Departure Time of Disposition: 12:25 Disposition: Home, Self-Care 01 Condition: Good Clinical Impression: Seizure - Discharge Information *PRESCRIPTION DRUG MONITORING PROGRAM REVIEWED*: Not Applicable *COPY OF PRESCRIPTION DRUG MONITORING REPORT IN PATIENT SHANE: Not Applicable Referrals: Karen Camacho PA-C [Primary Care Provider] - 1 Week Forms: ED Department Discharge, ED Return to Work/School Form Additional Instructions: Take your medications as prescribed. Drink plenty of fluids. Get some rest the next few days. Please return if you are worse. - My Orders Last 24 Hours: My Active Orders 06/20/18 09:43 Cardiac Monitoring [RC] . DIRECTED EKG Documentation Completion [RC] STAT Peripheral IV Care [RC] . DIRECTED Sodium Chloride 0.9% [Saline Flush] 10 ml FLUSH ASDIRECTED PRN Peripheral IV Insertion Adult [OM.PC] Stat - Assessment/Plan Last 24 Hours: My Active Orders 06/20/18 09:43 Cardiac Monitoring [RC] . DIRECTED EKG Documentation Completion [RC] STAT Peripheral IV Care [RC] . DIRECTED Sodium Chloride 0.9% [Saline Flush] 10 ml FLUSH ASDIRECTED PRN Peripheral IV Insertion Adult [OM.PC] Stat
== END 2018-06-20 12:45 | disposition home or self-care (01) ==
LOC: JD.ED 09:37
DX: R56.9 Unspecified convulsions (principal); K21.9 Gastro-esophageal reflux disease without esophagitis; F41.9 Anxiety disorder, unspecified; F32.9 Major depressive disorder, single episode, unspecified; Z88.1 Allergy status to other antibiotic agents; Z79.899 Other long term (current) drug therapy
CPT/HCPCS: 36415; 70450; 80053; 80306; 81001; 82962; 83735; 84484; 85025; 93005; 99284; G0480; 93010

== ENCOUNTER 2019-06-08 09:54 | Emergency (ER) | payer SELFPAY ==
[2019-06-08 10:06] VITALS: BP 122/61; PULSE 94
[2019-06-08] MEDS ORDERED: Ketorolac 30 MG/ML SDV IVPUSH ONE (10:33)
[2019-06-08] MEDS ORDERED: diphenhydrAMINE 50 MG/ML SDV IVPUSH ONE (10:33)
[2019-06-08] MEDS ORDERED: Sodium Chloride 0.9% 10 ML Syringe FLUSH PRN (10:33)
[2019-06-08] MEDS ORDERED: Metoclopramide 10 MG/2 ML SDV IVPUSH ONE (10:34)
[2019-06-08] MEDS ORDERED: Sodium Chloride 0.9% 1,000 ML IV SCH (10:45)
[2019-06-08] MEDS ORDERED: HYDROmorphone 0.5 MG/0.5 ML Syringe IVPUSH ONE (12:17)
--- NOTE | 2019-06-08 12:48 | EDM.PDOC ---
ED HPI GENERAL MEDICAL PROBLEM - General Chief Complaint: Neurological Problem Stated Complaint: NEUROLOGICAL PROBLEM Time Seen by Provider: 06/08/19 10:08 Source of Information: Reports: Patient History Limitations: Reports: No Limitations - History of Present Illness INITIAL COMMENTS - FREE TEXT/NARRATIVE: The patient presents for a seizure. She was at work today and she had a generalized seizure that lasted about 5 minutes. She was post ictal for about 15 minutes after. She has a bad headache now. She will get a headache after her migraines. She has no numbness but she does have generalized weakness. She has no fever, chills, cough, chest pain or shortness of breath. Onset: Sudden Duration: Minutes: Location: Reports: Generalized Severity: Moderate Improves with: Reports: None Worsens with: Reports: None Associated Symptoms: Reports: Headaches. Denies: Chest Pain, Cough, Fever/ Chills, Nausea/Vomiting, Shortness of Breath Headache Pain Score (Numeric/FACES): 10 - Related Data Allergies Allergy/AdvReac Type Severity Reaction Status Date / Time azithromycin Allergy Shortness Verified 06/08/19 10:04 of Breath Home Meds: Home Meds Omeprazole 40 mg PO DAILY 11/13/16 [History] hydrOXYzine HCl [Atarax] 25 mg PO BEDTIME PRN 11/13/16 [History] lamoTRIgine [Lamotrigine] 300 mg PO BEDTIME 11/13/16 [History] traZODone 100 mg PO BEDTIME 11/13/16 [History] ARIPiprazole [Abilify] 2 mg PO DAILY 01/11/17 [History] Citalopram Hydrobromide [Celexa] 40 mg PO DAILY 01/11/17 [History] lamoTRIgine 200 mg PO DAILY 03/01/17 [History] Past Medical History HEENT History: Reports: Impaired Vision Gastrointestinal History: Reports: GERD, PUD Genitourinary History: Reports: Urinary Incontinence 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: Musculoskeletal History: Reports: Fracture Neurological History: Reports: Migraines, Seizure Psychiatric History: Reports: Anxiety, Depression - Past Surgical History HEENT Surgical History: Reports: Oral Surgery, Tonsillectomy Female Surgical History: Reports: Section, Hysterectomy Social & Family History - Family History Family Medical History: Noncontributory - Tobacco Use Smoking Status *Q: Never Smoker Second Hand Smoke Exposure: No - Caffeine Use Caffeine Use: Reports: None - Recreational Drug Use Recreational Drug Use: No - Living Situation & Occupation Living situation: Reports: , with Spouse Occupation: Employed ([employer]) ED ROS GENERAL - Review of Systems Review Of Systems: See Below Constitutional: Reports: No Symptoms HEENT: Reports: No Symptoms Respiratory: Reports: No Symptoms Cardiovascular: Reports: No Symptoms Endocrine: Reports: No Symptoms GI/Abdominal: Reports: No Symptoms : Reports: No Symptoms Musculoskeletal: Reports: No Symptoms Neurological: Reports: Headache - Physical Exam Exam: See Below Exam Limited By: No Limitations General Appearance: Alert, No Apparent Distress Ears: Normal External Exam Nose: Normal Inspection Head Exam: Atraumatic, Normocephalic Neck: Normal Inspection Respiratory/Chest: No Respiratory Distress, Lungs Clear, Normal Breath Sounds Cardiovascular: Regular Rate, Rhythm, No Edema, No Murmur GI/Abdominal: Soft, Non-Tender, No Organomegaly, No Mass Neuro Exam (Abbreviated): Alert, Oriented, No Motor/Sensory Deficits Course - Vital Signs Last Recorded V/S: Last Vital Signs Temp 98.9 F 06/08/19 10:00 Pulse 94 06/08/19 10:00 Resp 16 06/08/19 10:00 BP 122/61 06/08/19 10:00 Pulse Ox 100 06/08/19 10:00 - Orders/Labs/Meds Orders: Active Orders 24 hr Category Date Time Status Cardiac Monitoring [RC] . DIRECTED Care 06/08/19 10:33 Active EKG 12 Lead [EKG Documentation Completion] [RC] STAT Care 06/08/19 10:27 Active Peripheral IV Care [RC] . DIRECTED Care 06/08/19 10:33 Active Sodium Chloride 0.9% [Normal Saline] 1,000 ml Med 06/08/19 10:45 Active IV .BOLUS Sodium Chloride 0.9% [Saline Flush] Med 06/08/19 10:33 Active 10 ml FLUSH ASDIRECTED PRN Peripheral IV Insertion Adult [OM.PC] Stat Oth 06/08/19 10:33 Ordered Medication Orders Sodium Chloride (Normal Saline) 1,000 mls @ 1,000 mls/hr IV .BOLUS NISH Last Admin: 06/08/19 10:59 Dose: 1,000 mls/hr Sodium Chloride (Saline Flush) 10 ml FLUSH ASDIRECTED PRN PRN Reason: Keep Vein Open Last Admin: 06/08/19 11:03 Dose: 10 ml Labs: Laboratory Tests 06/08/19 06/08/19 Range/Units 10:40 10:40 WBC 6.39 (3.98-10.04) K/mm3 RBC 4.08 (3.98-5.22) M/mm3 Hgb 11.4 D (11.2-15.7) gm/dl Hct 36.2 (34.1-44.9) % MCV 88.7 (79.4-94.8) fl MCH 27.9 (25.6-32.2) pg MCHC 31.5 L (32.2-35.5) g/dl RDW Std Deviation 40.1 (36.4-46.3) fL Plt Count 219 (182-369) K/mm3 MPV 8.8 L (9.4-12.3) fl Neutrophils % (Manual) 86 H (40-60) % Band Neutrophils % 0 (0-10) % Lymphocytes % (Manual) 10 L (20-40) % Atypical Lymphs % 0 % Monocytes % (Manual) 1 L (2-10) % Eosinophils % (Manual) 2 (0.7-5.8) % Basophils % (Manual) 1 (0.1-1.2) Platelet Estimate Adequate Plt Morphology Comment Normal RBC Morph Comment Normal Sodium 140 (136-145) mEq/L Potassium 3.4 L (3.5-5.1) mEq/L Chloride 106 (98-107) mEq/L Carbon Dioxide 27 D (21-32) mEq/L Anion Gap 10.4 (5-15) BUN 11 (7-18) mg/dL Creatinine 0.9 (0.55-1.02) mg/dL Est Cr Clr Drug Dosing 79.63 mL/min Estimated GFR (MDRD) > 60 (>60) mL/min BUN/Creatinine Ratio 12.2 L (14-18) Glucose 91 (74-106) mg/dL Calcium 8.2 L (8.5-10.1) mg/dL Total Bilirubin 0.3 (0.2-1.0) mg/dL AST 11 L (15-37) U/L ALT 21 (14-59) U/L Alkaline Phosphatase 39 L (46-116) U/L Total Protein 6.3 L (6.4-8.2) g/dl Albumin 3.6 (3.4-5.0) g/dl Globulin 2.7 gm/dL Albumin/Globulin Ratio 1.3 (1-2) Meds: Medications Generic Name Dose Route Start Last Admin Trade Name Shahram PRN Reason Stop Dose Admin Sodium Chloride 1,000 mls @ 1,000 mls/hr 06/08/19 10:45 06/08/19 10:59 Normal Saline IV 1,000 mls/hr .BOLUS NISH Administration Sodium Chloride 10 ml 06/08/19 10:33 06/08/19 11:03 Saline Flush FLUSH 10 ml ASDIRECTED PRN Administration Keep Vein Open Discontinued Medications Generic Name Dose Route Start Last Admin Trade Name Freq PRN Reason Stop Dose Admin Diphenhydramine HCl 50 mg 06/08/19 10:33 06/08/19 11:02 Benadryl IVPUSH 06/08/19 10:34 50 mg ONETIME ONE Administration Hydromorphone HCl 0.5 mg 06/08/19 12:17 06/08/19 12:35 Dilaudid IVPUSH 06/08/19 12:18 0.5 mg ONETIME ONE Administration Ketorolac Tromethamine 30 mg 06/08/19 10:33 06/08/19 11:02 Toradol IVPUSH 06/08/19 10:34 30 mg ONETIME ONE Administration Metoclopramide HCl 10 mg 06/08/19 10:34 06/08/19 11:00 Reglan IVPUSH 06/08/19 10:35 10 mg ONETIME ONE Administration - Re-Assessments/Exams Free Text/Narrative Re-Assessment/Exam: 06/08/19 12:46 I ordered an IV NS, toradol 30mg IV, reglan 10mg IV, benadryl 50mg IV, and labs. Her labs look good. She still has a headache. I will give her some dilaudid and discharge her home. Departure - Departure Time of Disposition: 12:50 Disposition: Home, Self-Care 01 Condition: Good Clinical Impression: Seizure Migraine Qualifiers: Migraine type: other Status migrainosus presence: without status migrainosus Intractability: not intractable Qualified Code(s): G43.809 - Other migraine, not intractable, without status migrainosus - Discharge Information *PRESCRIPTION DRUG MONITORING PROGRAM REVIEWED*: Not Applicable *COPY OF PRESCRIPTION DRUG MONITORING REPORT IN PATIENT SHANE: Not Applicable Referrals: Karen Camacho PA-C [Primary Care Provider] - Forms: ED Department Discharge, ED Return to Work/School Form Additional Instructions: Take your medication as prescribed. Get plenty of rest. Please return if you are worse. Sepsis Event Note - Evaluation Sepsis Screening Result: No Definite Risk - Focused Exam Vital Signs: Vital Signs Temp Pulse Resp BP Pulse Ox 06/08/19 10:00 98.9 F 94 16 122/61 100 Date Exam was Performed: 06/08/19 Time Exam was Performed: 12:42 - My Orders Last 24 Hours: My Active Orders 06/08/19 10:27 EKG 12 Lead [EKG Documentation Completion] [RC] STAT 06/08/19 10:33 Cardiac Monitoring [RC] . DIRECTED Peripheral IV Care [RC] . DIRECTED Sodium Chloride 0.9% [Saline Flush] 10 ml FLUSH ASDIRECTED PRN Peripheral IV Insertion Adult [OM.PC] Stat 06/08/19 10:45 Sodium Chloride 0.9% [Normal Saline] 1,000 ml IV .BOLUS - Assessment/Plan Last 24 Hours: My Active Orders 06/08/19 10:27 EKG 12 Lead [EKG Documentation Completion] [RC] STAT 06/08/19 10:33 Cardiac Monitoring [RC] . DIRECTED Peripheral IV Care [RC] . DIRECTED Sodium Chloride 0.9% [Saline Flush] 10 ml FLUSH ASDIRECTED PRN Peripheral IV Insertion Adult [OM.PC] Stat 06/08/19 10:45 Sodium Chloride 0.9% [Normal Saline] 1,000 ml IV .BOLUS
== END 2019-06-08 13:03 | disposition home or self-care (01) ==
LOC: JD.ED 09:54
DX: R56.9 Unspecified convulsions (principal); G43.809 Other migraine, not intractable, without status migrainosus; K21.9 Gastro-esophageal reflux disease without esophagitis; Z79.899 Other long term (current) drug therapy; Z88.1 Allergy status to other antibiotic agents; F41.9 Anxiety disorder, unspecified; F32.9 Major depressive disorder, single episode, unspecified
CPT/HCPCS: 36415; 80053; 85007; 85027; 93005; 96361; 96374; 96375; 99284; J1170; J1200; J1885; J2765; J7030

== ENCOUNTER 2020-04-16 13:53 | Emergency (ER) | payer SELFPAY ==
--- NOTE | 2020-04-16 14:27 | EDM.PDOC ---
ED HPI GENERAL MEDICAL PROBLEM - General Chief Complaint: Neurological Problem Stated Complaint: [facility] Time Seen by Provider: 04/16/20 14:12 Source of Information: Reports: Patient, Old Records, RN Notes Reviewed History Limitations: Reports: No Limitations - History of Present Illness INITIAL COMMENTS - FREE TEXT/NARRATIVE: Patient is a 44-year-old female who presents to the ED via [facility] ambulance service for the evaluation of her seizure. Patient has a seizure disorder, and she was at work, at [employer], when the staff noted she was having what they de scribed as a grand mal seizure. She is not sure how long it lasted, and we do not have an accurate timeline of how long it lasted. She was not incontinent of bladder. She was post ictal when the ambulance arrived, and seem to be as such but has cleared up since sitting in the ER. Blood sugar at the scene was 131. They did establish an IV but did not give any medications. Patient apparently w as slightly combative for the ambulance staff, but she has been cooperative in the ER. She was wanting to pull her IV out, so they wrapped it at this time. Patient can answer most questions appropriately. She knows where she is, what town she lives in, but she could not really tell me what month it was. Patient's primary care provider is Karen Camacho. Patient's not had any recent change in her medications and she does take Lamictal daily and has not missed a dose of her medications. Patient denies any other sick-like symptoms, fever/chills, cough/shortness of breath, nausea/vomiting/diarrhea. She further denies any sort of headache, she has a history of migraines after seizures as well. Headache Pain Score (Numeric/FACES): 10 - Related Data Allergies Allergy/AdvReac Type Severity Reaction Status Date / Time azithromycin Allergy Severe Shortness Verified 04/16/20 14:08 of Breath Home Meds: Home Meds Omeprazole 40 mg PO DAILY 11/13/16 [History] hydrOXYzine HCl [Atarax] 25 mg PO BEDTIME PRN 11/13/16 [History] lamoTRIgine [Lamotrigine] 300 mg PO BEDTIME 11/13/16 [History] traZODone 100 mg PO BEDTIME 11/13/16 [History] ARIPiprazole [Abilify] 2 mg PO DAILY 01/11/17 [History] Citalopram Hydrobromide [Celexa] 40 mg PO DAILY 01/11/17 [History] lamoTRIgine 200 mg PO DAILY 03/01/17 [History] Past Medical History HEENT History: Reports: Impaired Vision Gastrointestinal History: Reports: GERD, PUD Genitourinary History: Reports: Urinary Incontinence 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 Social & Family History - Family History Family Medical History: No Pertinent Family History - Tobacco Use Tobacco Use Status *Q: Never Tobacco User - Caffeine Use Caffeine Use: Reports: Coffee, Soda, Tea - Recreational Drug Use Recreational Drug Use: No - Living Situation & Occupation Living situation: Reports: , with Spouse Occupation: Employed ([employer]) ED ROS GENERAL - Review of Systems Review Of Systems: Comprehensive ROS is negative, except as noted in HPI. - Physical Exam Exam: See Below Exam Limited By: No Limitations General Appearance: Alert, WD/WN, No Apparent Distress Eye Exam: Bilateral Eye: EOMI, Normal Inspection, PERRL Ears: Normal External Exam, Normal Canal, Hearing Grossly Normal, Normal TMs Nose: Normal Inspection, No Blood Throat/Mouth: Normal Inspection, Normal Lips, Normal Teeth, Normal Gums, Normal Oropharynx, Normal Voice, No Airway Compromise, Evidence of Tongue Biting (she may have bit the tip of her tongue slightly as there is a very small area of bleeding.) Head Exam: Atraumatic, Normocephalic Neck: Normal Inspection, Supple, Non-Tender, Full Range of Motion Respiratory/Chest: No Respiratory Distress, Lungs Clear, Normal Breath Sounds, No Accessory Muscle Use, Chest Non-Tender Cardiovascular: Normal Peripheral Pulses, Regular Rate, Rhythm, No Murmur Neuro Exam (Abbreviated): Alert, Oriented (to place), Normal Cognition, No Motor/Sensory Deficits Extremities: Normal Inspection, Normal Capillary Refill Psychiatric: Normal Affect, Normal Mood Skin Exam: Warm, Dry, Intact, Normal Color, No Rash Course - Vital Signs Last Recorded V/S: Last Vital Signs Temp 96.5 F L 04/16/20 14:07 Pulse 101 H 04/16/20 14:07 Resp 20 04/16/20 14:07 BP 119/64 04/16/20 14:07 Pulse Ox 99 04/16/20 14:07 - Orders/Labs/Meds Meds: Medications Discontinued Medications Generic Name Dose Route Start Last Admin Trade Name Shahram PRN Reason Stop Dose Admin Diphenhydramine HCl 25 mg 04/16/20 14:37 04/16/20 14:50 Benadryl IVPUSH 04/16/20 14:38 25 mg ONETIME ONE Administration Ketorolac Tromethamine 30 mg 04/16/20 14:37 04/16/20 14:49 Toradol IVPUSH 04/16/20 14:38 30 mg ONETIME ONE Administration Metoclopramide HCl 10 mg 04/16/20 14:37 04/16/20 14:48 Reglan IVPUSH 04/16/20 14:38 10 mg ONETIME ONE Administration - Re-Assessments/Exams Free Text/Narrative Re-Assessment/Exam: 04/16/20 14:27 Patient presents to the ER for the evaluation of her witnessed seizure. We will continue to observe her in the ER and hopefully get her discharged home after she has been symptom-free for an hour or so. 04/16/20 14:37 Was informed by nursing staff, the patient is having a headache now. We will get her Toradol, Benadryl, Reglan for initial management. 04/16/20 16:19 Patient has been seizure free for the duration of her ER stay. We will hopefully get her discharged home with conservative measures and have her follow-up with her regular care provider for further management of her ongoing seizure activity. Departure - Departure Time of Disposition: 16:24 Disposition: Home, Self-Care 01 Condition: Good Clinical Impression: Seizure - Discharge Information *PRESCRIPTION DRUG MONITORING PROGRAM REVIEWED*: No *COPY OF PRESCRIPTION DRUG MONITORING REPORT IN PATIENT SHANE: No Instructions: Seizure, Adult, [id number] Referrals: Karen Camacho PA-C [Primary Care Provider] - Forms: ED Department Discharge, ED Return to Work/School Form Additional Instructions: You were evaluated in the ED for your seizure. You were observed in the ER for some time and did not have any sign of impending seizure. You were treated for a headache with some IV medications and this seemed to relieve most your headache. Please go home, rest relax and take it easy over the next few days. I recommend you follow-up with your regular care provider, sometime within the next week for reevaluation and further management. Please continue to take all of your medications at home as previously prescribed, no changes in medications have been done at today's ER visit. Please return to the ER at any time if your symptoms change or worsen. Sepsis Event Note (ED) - Evaluation Sepsis Screening Result: No Definite Risk - Focused Exam Vital Signs: Vital Signs Temp Pulse Resp BP Pulse Ox 04/16/20 14:07 96.5 F L 101 H 20 119/64 99
[2020-04-16] MEDS ORDERED: Metoclopramide 10 MG/2 ML SDV IVPUSH ONE (14:37)
[2020-04-16] MEDS ORDERED: diphenhydrAMINE 50 MG/ML SDV IVPUSH ONE (14:37)
[2020-04-16] MEDS ORDERED: Ketorolac 30 MG/ML SDV IVPUSH ONE (14:37)
[2020-04-16 16:29] VITALS: BP 118/53; PULSE 69
== END 2020-04-16 16:48 | disposition home or self-care (01) ==
LOC: SUPCPDRO 13:53 → JD.ED 13:53
DX: G40.909 Epilepsy, unspecified, not intractable, without status epilepticus (principal); F41.9 Anxiety disorder, unspecified; F32.9 Major depressive disorder, single episode, unspecified; K21.9 Gastro-esophageal reflux disease without esophagitis; Z88.1 Allergy status to other antibiotic agents; Z79.899 Other long term (current) drug therapy
CPT/HCPCS: 96374; 96375; 99284; J1200; J1885; J2765

== ENCOUNTER 2020-10-16 11:02 | Emergency (ER) | payer SELFPAY ==
[2020-10-16 11:25] VITALS: BP 126/54; PULSE 64
[2020-10-16] MEDS ORDERED: Sodium Chloride 0.9% 10 ML Syringe FLUSH PRN (11:46)
[2020-10-16] MEDS ORDERED: Metoclopramide 10 MG/2 ML SDV IVPUSH ONE (11:46)
[2020-10-16] MEDS ORDERED: Ketorolac 30 MG/ML SDV IVPUSH ONE (11:46)
[2020-10-16] MEDS ORDERED: Sodium Chloride 0.9% 1,000 ML IV ONE (11:46)
[2020-10-16] MEDS ORDERED: diphenhydrAMINE 50 MG/ML SDV IVPUSH ONE (11:46)
--- NOTE | 2020-10-16 11:49 | EDM.PDOC ---
ED HPI GENERAL MEDICAL PROBLEM - General Chief Complaint: General Stated Complaint: MIGRANE AFTER SEIZURE /FALL Time Seen by Provider: 10/16/20 11:35 Source of Information: Reports: Patient, RN Notes Reviewed History Limitations: Reports: No Limitations - History of Present Illness INITIAL COMMENTS - FREE TEXT/NARRATIVE: Patient is a 45-year-old female who presents to the ER for a migraine headache after a seizure and fall. Does have a history of seizures, and on Monday she had a grand mall seizure and ended up falling at home, she did not seek medical attention at that time, she notes she did not hit her head, she did not have any sort of loss of consciousness. She did get to see her neurologist Dr. Zamarripa yesterday in [place] and was started on Topamax but got back to [facility] too late and was not able to fill it last night. patient states that she was taking her dog out this morning, when she did fall back onto her stairs and landed on her coccyx and the palms of her hand so she has some tenderness however it is not too bothersome and she can sit without much difficulty. States that she just feels generalized weakness, and a headache, and she just had issues with this before trying to go to work. She notes that she had no blood work done yesterday at her visit, since she was a started on Topamax they wanted to wait a month or 2 before they do these levels. She has not had any fevers or chills, cough or shortness of breath, nausea/vomiting/diarrhea. She is having no blurred vision or double vision. Notes that she does have history of migraines as well. Patient was unsure if she had some sort of seizure during her sleep due to her feeling lethargic and weak today. Treatments SESSIONS CLERK: Reports: Other (see below) Other Treatments SESSIONS CLERK: none Lower Back Pain Score (Numeric/FACES): 3 Headache Pain Score (Numeric/FACES): 7 - Related Data Allergies Allergy/AdvReac Type Severity Reaction Status Date / Time azithromycin Allergy Severe Shortness Verified 04/16/20 14:08 of Breath Home Meds: Home Meds Omeprazole 40 mg PO DAILY 11/13/16 [History] hydrOXYzine HCl [Atarax] 25 mg PO BEDTIME PRN 11/13/16 [History] lamoTRIgine [Lamotrigine] 300 mg PO BEDTIME 11/13/16 [History] traZODone 100 mg PO BEDTIME 11/13/16 [History] Citalopram Hydrobromide [Celexa] 40 mg PO DAILY 01/11/17 [History] lamoTRIgine 200 mg PO DAILY 03/01/17 [History] Past Medical History HEENT History: Reports: Impaired Vision Gastrointestinal History: Reports: GERD, PUD Genitourinary History: Reports: Urinary Incontinence [employer]ANG[employer] History: Reports: Musculoskeletal History: Reports: Fracture Neurological History: Reports: Migraines, Seizure Psychiatric History: Reports: Anxiety, Depression - Infectious Disease History Infectious Disease History: Reports: Novel Coronavirus - Past Surgical History HEENT Surgical History: Reports: Oral Surgery, Tonsillectomy Female Surgical History: Reports: Section, Hysterectomy Musculoskeletal Surgical History: Reports: Other (See Below) Other Musculoskeletal Surgeries/Procedures:: Rishabh in leg. Social & Family History - Family History Family Medical History: No Pertinent Family History - Tobacco Use Tobacco Use Status *Q: Never Tobacco User - Caffeine Use Caffeine Use: Reports: Soda - Recreational Drug Use Recreational Drug Use: No - Living Situation & Occupation Living situation: Reports: , with Spouse Occupation: Employed ([employer]) ED ROS GENERAL - Review of Systems Review Of Systems: Comprehensive ROS is negative, except as noted in HPI. ED EXAM, GENERAL - Physical Exam Exam: See Below Exam Limited By: No Limitations General Appearance: Alert, WD/WN, No Apparent Distress Throat/Mouth: Normal Inspection, Normal Lips, Normal Teeth, Normal Gums, Normal Oropharynx, Normal Voice, No Airway Compromise Head: Atraumatic, Normocephalic Neck: Normal Inspection, Supple, Non-Tender, Full Range of Motion Respiratory/Chest: No Respiratory Distress, Lungs Clear, Normal Breath Sounds, No Accessory Muscle Use, Chest Non-Tender Cardiovascular: Normal Peripheral Pulses, Regular Rate, Rhythm, No Edema Peripheral Pulses: 2+: Radial (L), Radial (R) GI/Abdominal: Normal Bowel Sounds, Soft, Non-Tender, No Distention, No Mass Extremities: Normal Inspection, Normal Capillary Refill Neurological: Alert, Oriented, Normal Cognition, No Motor/Sensory Deficits Psychiatric: Normal Affect, Normal Mood Skin Exam: Warm, Dry, Intact, Normal Color, No Rash Course - Vital Signs Last Recorded V/S: Last Vital Signs Temp 98.2 F 10/16/20 11:23 Pulse 64 10/16/20 11:23 Resp 20 10/16/20 11:23 BP 126/54 L 10/16/20 11:23 Pulse Ox 100 10/16/20 11:23 - Orders/Labs/Meds Orders: Active Orders 24 hr Category Date Time Status Peripheral IV Care [RC] . DIRECTED Care 10/16/20 11:46 Ordered LAMOTRIGINE, SERUM [REF] Stat Lab 10/16/20 11:47 Ordered Sodium Chloride 0.9% [Saline Flush] Med 10/16/20 11:46 Ordered 10 ml FLUSH ASDIRECTED PRN Peripheral IV Insertion Adult [OM.PC] Routine Oth 10/16/20 11:46 Ordered Medication Orders Sodium Chloride (Sodium Chloride 0.9% 10 Ml Syringe) 10 ml FLUSH ASDIRECTED PRN PRN Reason: Keep Vein Open Last Admin: 10/16/20 11:56 Dose: 10 ml Documented by: CASTRO Labs: Laboratory Tests 10/16/20 10/16/20 Range/Units 11:20 11:20 WBC 6.64 (3.98-10.04) K/mm3 RBC 4.57 (3.98-5.22) M/mm3 Hgb 13.2 D (11.2-15.7) gm/dl Hct 40.9 (34.1-44.9) % MCV 89.5 (79.4-94.8) fl MCH 28.9 (25.6-32.2) pg MCHC 32.3 (32.2-35.5) g/dl RDW Std Deviation 42.6 (36.4-46.3) fL Plt Count 248 (182-369) K/mm3 MPV 9.7 (9.4-12.3) fl Neut % (Auto) 72.7 H (34.0-71.1) % Lymph % (Auto) 20.2 (19.3-51.7) % [place] % (Auto) 6.3 (4.7-12.5) % Eos % (Auto) 0.3 L (0.7-5.8) Baso % (Auto) 0.5 (0.1-1.2) % Neut # (Auto) 4.83 (1.56-6.13) K/mm3 Lymph # (Auto) 1.34 (1.18-3.74) K/mm3 [place] # (Auto) 0.42 H (0.24-0.36) K/mm3 Eos # (Auto) 0.02 L (0.04-0.36) K/mm3 Baso # (Auto) 0.03 (0.01-0.08) K/mm3 Sodium 143 (136-145) mEq/L Potassium 3.7 (3.5-5.1) mEq/L Chloride 105 (98-107) mEq/L Carbon Dioxide 30 (21-32) mEq/L Anion Gap 11.7 (5-15) BUN 6 L (7-18) mg/dL Creatinine 0.7 (0.55-1.02) mg/dL Est Cr Clr Drug Dosing 81.57 mL/min Estimated GFR (MDRD) > 60 (>60) mL/min BUN/Creatinine Ratio 8.6 L (14-18) Glucose 93 (70-99) mg/dL Calcium 8.5 (8.5-10.1) mg/dL Total Bilirubin 0.7 (0.2-1.0) mg/dL AST 18 (15-37) U/L ALT 20 (14-59) U/L Alkaline Phosphatase 36 L (46-116) U/L Total Protein 6.7 (6.4-8.2) g/dl Albumin 3.9 (3.4-5.0) g/dl Globulin 2.8 gm/dL Albumin/Globulin Ratio 1.4 (1-2) Meds: Medications Generic Name Dose Route Start Last Admin Trade Name Shahram PRN Reason Stop Dose Admin Sodium Chloride 10 ml 10/16/20 11:46 10/16/20 11:56 Sodium Chloride 0.9% 10 Ml Syringe FLUSH 10 ml ASDIRECTED PRN Administration Keep Vein Open Discontinued Medications Generic Name Dose Route Start Last Admin Trade Name Freq PRN Reason Stop Dose Admin Diphenhydramine HCl 25 mg 10/16/20 11:46 10/16/20 11:55 Diphenhydramine 50 Mg/Ml Sdv IVPUSH 10/16/20 11:47 25 mg ONETIME ONE Administration Sodium Chloride 1,000 mls @ 999 mls/hr 10/16/20 11:46 10/16/20 11:55 Normal Saline IV 10/16/20 12:46 999 mls/hr ASDIRECTED ONE Administration Ketorolac Tromethamine 30 mg 10/16/20 11:46 10/16/20 11:59 Ketorolac 30 Mg/Ml Sdv IVPUSH 10/16/20 11:47 30 mg ONETIME ONE Administration Metoclopramide HCl 7.5 mg 10/16/20 11:46 10/16/20 11:55 Metoclopramide 10 Mg/2 Ml Sdv IVPUSH 10/16/20 11:47 7.5 mg ONETIME ONE Administration - Re-Assessments/Exams Free Text/Narrative Re-Assessment/Exam: 10/16/20 11:55 Patient presents to the ED for the evaluation of her migraine headache after a seizure/fall. For today's purposes we will check basic labs and do a send out for Lamictal. We will give her some medications for her headache to see if this helps a little bit, I did offer to do a head CT, but the patient declined at this time. Plan will be to reassess after the medications have been given time to work and labs have resulted and hopefully send her home with general recommendations and let her start her new medication and rest for the next day or 2. 10/16/20 13:05 The patient's labs have resulted and are unremarkable, Lamictal level is pending due to it being a send out patient was reassessed at bedside and notes she is feeling much better we will go ahead and discharge her home with general recommendations. Departure - Departure Time of Disposition: 13:05 Disposition: Home, Self-Care 01 Condition: Good Clinical Impression: Migraine Qualifiers: Migraine type: other Status migrainosus presence: without status migrainosus Intractability: not intractable Qualified Code(s): G43.809 - Other migraine, not intractable, without status migrainosus - Discharge Information *PRESCRIPTION DRUG MONITORING PROGRAM REVIEWED*: No *COPY OF PRESCRIPTION DRUG MONITORING REPORT IN PATIENT SHANE: No Instructions: Migraine Headache, [id number] Referrals: Karen Camacho PA-C [Primary Care Provider] - Forms: ED Department Discharge, ED Return to Work/School Form Additional Instructions: You were evaluated in the ED for your headache/lethargy. You were given a combination of medications and IV fluid for management. This did seem to provide you pretty good relief of your symptoms. Laboratory evaluation demonstrated no signs of acute illness, your Lamictal level is pending; this should take a few days to result, we will call you if there are any worrisome issues regarding the Lamictal level. If you get a call from a private number, this is likely awesome please answer the phone. Recommend that you go home and rest in a quiet, darkened room. Try also to keep well hydrated. Please return to the ED if your symptoms should change or worsen. Sepsis Event Note (ED) - Evaluation Sepsis Screening Result: No Definite Risk - Focused Exam Vital Signs: Vital Signs Temp Pulse Resp BP Pulse Ox 10/16/20 11:23 98.2 F 64 20 126/54 L 100 - My Orders Last 24 Hours: My Active Orders 10/16/20 11:46 Peripheral IV Care [RC] . DIRECTED Sodium Chloride 0.9% [Saline Flush] 10 ml FLUSH ASDIRECTED PRN Peripheral IV Insertion Adult [OM.PC] Routine 10/16/20 11:47 LAMOTRIGINE, SERUM [REF] Stat - Assessment/Plan Last 24 Hours: My Active Orders 10/16/20 11:46 Peripheral IV Care [RC] . DIRECTED Sodium Chloride 0.9% [Saline Flush] 10 ml FLUSH ASDIRECTED PRN Peripheral IV Insertion Adult [OM.PC] Routine 10/16/20 11:47 LAMOTRIGINE, SERUM [REF] Stat
== END 2020-10-16 13:16 | disposition home or self-care (01) ==
LOC: JD.ED 11:02
DX: G43.809 Other migraine, not intractable, without status migrainosus (principal); K21.9 Gastro-esophageal reflux disease without esophagitis; R56.9 Unspecified convulsions; Z79.899 Other long term (current) drug therapy; Z88.1 Allergy status to other antibiotic agents
CPT/HCPCS: 80053; 80175; 85025; 96374; 96375; 99283; J1200; J1885; J2765; J7030; 36415

== ENCOUNTER 2021-01-31 18:25 | Emergency (ER) | payer SELFPAY ==
[2021-01-31 18:38] VITALS: BP 139/77; PULSE 84
[2021-01-31] MEDS ORDERED: Orphenadrine 100 MG Tab.ER PO STA (19:10)
--- NOTE | 2021-01-31 19:13 | EDM.PDOC ---
ED HPI GENERAL MEDICAL PROBLEM - General Chief Complaint: Chest Pain Stated Complaint: CHEST PAIN Time Seen by Provider: 01/31/21 18:57 Source of Information: Reports: Patient, Family () History Limitations: Reports: No Limitations - History of Present Illness INITIAL COMMENTS - FREE TEXT/NARRATIVE: Mrs. Irene is a very pleasant 45-year-old woman who now presents the ED after developing sudden-onset right-sided chest pain around 18:30 tonight. She indicates a discrete area just right of her sternum at about the third intercostal space. She describes the pain as a stabbing sensation, and states that it is a pain, not a discomfort. The pain is made worse if she raises her right arm, better if she allows it to hang at her side. She denies all associated symptoms, including nausea, dyspnea, diaphoresis, and sense of impending doom. No prior similar symptoms. The patient states that the pain has diminished somewhat since its onset. She did not take any [id number] or home remedies prior to coming to the ED. Here in the ED, the patient is found to be hemodynamically stable, afebrile, saturating 100% on room air. She appears to be comfortable, in no acute distress. Prior to 18:30 this evening, the patient denies having a recent fever, chills, sore throat, ear pain, nasal or sinus congestion, cough, dyspnea, chest pain, palpitations, nausea, vomiting, constipation, diarrhea, abdominal pain, urinary symptoms, recent weight gain or weight loss, recent bloody bowel movements or black bowel movements, recent joint aches, headaches, or rashes. The patient's PCP is DANIEL Chang. Her Neurologist is Dr. Lilly Zamarripa. She has received a single [employer] COVID vaccination. Right Chest Pain Score (Numeric/FACES): 7 - Related Data Allergies Allergy/AdvReac Type Severity Reaction Status Date / Time azithromycin Allergy Severe Shortness Verified 01/31/21 18:38 of Breath Home Meds: Home Meds Omeprazole 40 mg PO DAILY 11/13/16 [History] hydrOXYzine HCl [Atarax] 25 mg PO BEDTIME PRN 11/13/16 [History] lamoTRIgine [Lamotrigine] 300 mg PO BEDTIME 11/13/16 [History] traZODone 100 mg PO BEDTIME 11/13/16 [History] Citalopram Hydrobromide [Celexa] 40 mg PO DAILY 01/11/17 [History] lamoTRIgine 200 mg PO DAILY 03/01/17 [History] Orphenadrine [Norflex] 1 tab PO Q12H PRN #14 tab.er 01/31/21 [Rx] Past Medical History HEENT History: Reports: Impaired Vision, Other (See Below) (Edentulous) Gastrointestinal History: Reports: GERD, PUD Genitourinary History: Reports: Urinary Incontinence (stress incontinence) Musculoskeletal History: Reports: Fracture (left femur) Neurological History: Reports: Migraines, Seizure Psychiatric History: Reports: Anxiety, Depression - Infectious Disease History Infectious Disease History: Reports: Novel Coronavirus (dx'd 01/07/2020) - Past Surgical History HEENT Surgical History: Reports: Oral Surgery (dental extractions), Tonsillectomy Female Surgical History: Reports: Section (x 1), Hysterectomy (complete) Musculoskeletal Surgical History: Reports: Other (See Below) (Left femur drake) Social & Family History - Tobacco Use Tobacco Use Status *Q: Never Tobacco User Second Hand Smoke Exposure: No - Caffeine Use Caffeine Use: Reports: Soda - Alcohol Use Alcohol Use History: Yes Alcohol Use Frequency: Socially - Recreational Drug Use Recreational Drug Use: No - Living Situation & Occupation Living situation: Reports: , with Spouse Occupation: Employed ([employer]) ED ROS GENERAL - Review of Systems Review Of Systems: Comprehensive ROS is negative, except as noted in HPI. ED EXAM, GENERAL - Physical Exam Exam: See Below Exam Limited By: No Limitations General Appearance: Alert, No Apparent Distress, Thin Eye Exam: Bilateral Eye: EOMI, Normal Inspection Ears: Normal External Exam, Hearing Grossly Normal Nose: Normal Inspection Throat/Mouth: Normal Inspection, Normal Lips, Normal Voice, No Airway Compromise Head: Atraumatic, Normocephalic Neck: Normal Inspection, Full Range of Motion Respiratory/Chest: No Respiratory Distress, Lungs Clear, Normal Breath Sounds, No Accessory Muscle Use, Other (Reproducible tenderness to palpation of the chest just right of the sternum at approximately the 3rd intercostal space) Cardiovascular: Normal Peripheral Pulses, Regular Rate, Rhythm, No Edema, No Gallop, No JVD, No Murmur, No Rub Peripheral Pulses: 3+: Radial (L), Radial (R) GI/Abdominal: Normal Bowel Sounds, Soft, Non-Tender, No Organomegaly, No Distention, No Abnormal Bruit, No Mass Back Exam: Normal Inspection, Full Range of Motion, NT Extremities: Normal Inspection, Normal Range of Motion, No Pedal Edema, Normal Capillary Refill Neurological: Alert, Oriented, Normal Cognition, No Motor/Sensory Deficits Psychiatric: Normal Affect Skin Exam: Warm, Dry, Intact, Normal Color, No Rash #1 Interpretation EKG Date: 01/31/21 Time: 18:33 Rhythm: NSR Rate (Beats/Min): 71 [place]: Normal P-Wave: Enlarged (MAYA) QRS: Normal ST-T: Normal QT: Prolonged (QTc 485 ms) Comparison: Change From Previous EKG (QTc prolongation new since 06/08/2019) Course - Vital Signs Last Recorded V/S: Last Vital Signs Temp 36.6 C 01/31/21 18:35 Pulse 84 01/31/21 18:35 Resp 17 01/31/21 18:35 BP 139/77 01/31/21 18:35 Pulse Ox 100 01/31/21 18:35 - Orders/Labs/Meds Labs: Laboratory Tests 01/31/21 01/31/21 01/31/21 Range/Units 18:39 18:39 18:39 WBC 5.50 (3.98-10.04) K/mm3 RBC 4.42 (3.98-5.22) M/mm3 Hgb 13.0 (11.2-15.7) gm/dl Hct 40.4 (34.1-44.9) % MCV 91.4 (79.4-94.8) fl MCH 29.4 (25.6-32.2) pg MCHC 32.2 (32.2-35.5) g/dl RDW Std Deviation 42.5 (36.4-46.3) fL Plt Count 216 (182-369) K/mm3 MPV 9.8 (9.4-12.3) fl Neutrophils % (Manual) 62 H (40-60) % Band Neutrophils % 0 (0-10) % Lymphocytes % (Manual) 32 (20-40) % Atypical Lymphs % 0 % Monocytes % (Manual) 5 (2-10) % Eosinophils % (Manual) 0 L (0.7-5.8) % Basophils % (Manual) 1 (0.1-1.2) Platelet Estimate Adequate RBC Morph Comment Normal D-Dimer, Quantitative 0.22 (0.19-0.50) mg/L Sodium 140 (136-145) mEq/L Potassium 3.1 L (3.5-5.1) mEq/L Chloride 103 (98-107) mEq/L Carbon Dioxide 30 (21-32) mEq/L Anion Gap 10.1 (5-15) BUN 7 (7-18) mg/dL Creatinine 0.7 (0.55-1.02) mg/dL Est Cr Clr Drug Dosing 81.26 mL/min Estimated GFR (MDRD) > 60 (>60) mL/min BUN/Creatinine Ratio 10.0 L (14-18) Glucose 95 (70-99) mg/dL Calcium 8.3 L (8.5-10.1) mg/dL Total Bilirubin 0.3 (0.2-1.0) mg/dL AST 12 L (15-37) U/L ALT 16 (14-59) U/L Alkaline Phosphatase 34 L (46-116) U/L Troponin I < 0.017 (0.00-0.056) ng/mL Total Protein 6.7 (6.4-8.2) g/dl Albumin 3.8 (3.4-5.0) g/dl Globulin 2.9 gm/dL Albumin/Globulin Ratio 1.3 (1-2) Meds: Medications Discontinued Medications Generic Name Dose Route Start Last Admin Trade Name Freq PRN Reason Stop Dose Admin Ibuprofen 600 mg 01/31/21 20:28 01/31/21 20:39 Ibuprofen 600 Mg Tab PO 01/31/21 20:29 600 mg ONETIME ONE Administration Orphenadrine Citrate 100 mg 01/31/21 19:10 01/31/21 19:19 Orphenadrine 100 Mg Tab.Er PO 01/31/21 19:11 100 mg ONETIME STA Administration Potassium Chloride 40 meq 01/31/21 20:24 01/31/21 20:39 Potassium Chloride 20 Meq Tab.Er PO 01/31/21 20:25 40 meq ONETIME ONE Administration - Re-Assessments/Exams Free Text/Narrative Re-Assessment/Exam: 01/31/21 19:11 An ECG, obtained at triage, appears to be grossly normal, with no ischemic changes. The patient's presentation is most consistent with a musculoskeletal etiology, nevertheless, I have ordered a work-up that includes several blood tests and a chest x-ray. In the meantime, the patient will be started on Norflex. 01/31/21 20:23 Two-view chest radiograph appears to be grossly normal. The cardiac silhouette is within normal limits. No pulmonary vascular congestion. No pleural effusions. No focal infiltrate. No pneumothorax. Formal read per the Radiologist pending. The patient's CBC is unremarkable. Her CMP is remarkable for hypokalemia of 3.1, with the remainder of her CMP being unremarkable. Her troponin is undetectably low. Her D-dimer is within normal limits at 0.22. Based on the above, I will order 40 mEq of oral KCl. 01/31/21 20:29 Test results discussed with the patient and her . As above, with the exception of mild hypokalemia, tonight's work-up is grossly unremarkable. Her chest pain is most likely musculoskeletal in etiology. She has already been started on Norflex, and I will add ibuprofen. I will submit a prescription of Norflex to the pharmacy of her choice, that she can take along with OTC ibuprofen. She should expect resolution of her symptoms within a few days. Departure - Departure Time of Disposition: 20:30 Disposition: Home, Self-Care 01 Condition: Good Clinical Impression: Musculoskeletal chest pain, Hypokalemia - Discharge Information *PRESCRIPTION DRUG MONITORING PROGRAM REVIEWED*: Not Applicable *COPY OF PRESCRIPTION DRUG MONITORING REPORT IN PATIENT SHANE: Not Applicable Prescriptions: Orphenadrine [Norflex] 1 tab PO Q12H PRN #14 tab.er PRN Reason: Muscle Spasm - Painful Instructions: Hypokalemia, Chest Wall Pain Referrals: Karen Camacho PA-C [Primary Care Provider] - Lilly Zamarripa MD [Ordering Only Provider] - Forms: ED Department Discharge Additional Instructions: You were seen in the emergency room after developing sudden onset right-sided chest pain tonight. Work-up in the ER included several blood tests, a chest x-ray, and an ECG. Your blood work found your potassium to be mildly low at 3.1. You were given replacement potassium in the ER. The remainder of your work-up was unremarkable. You have not suffered a heart attack. You do not have a blood clot in your lungs. You do not have pneumonia. You do not have a collapsed lung. Based on your history, physical exam, and ER tests, the cause of your right- sided chest pain is most likely musculoskeletal in etiology. You have been started on the muscle relaxant Norflex, and a prescription for Norflex has been sent to the [facility]. Take 1 tablet of Norflex every 12 hours, starting tomorrow morning, 02/01/2021, as prescribed. Norflex works well with ibuprofen. We recommend that you take 2 tablets (400 mg) of [id number] ibuprofen, with food, up to every 8 hours, as needed for discomfort. You should expect resolution of your symptoms within the next few days. If your symptoms persist, please follow-up with your PCP, DANIEL Chang, for further evaluation. If any other problems, please do not hesitate to return to the ER. Sepsis Event Note (ED) - Evaluation Sepsis Screening Result: No Definite Risk - Focused Exam Vital Signs: Vital Signs Temp Pulse Resp BP Pulse Ox 01/31/21 18:35 36.6 C 84 17 139/77 100
[2021-01-31] MEDS ORDERED: Potassium Chloride 20 MEQ Tab.ER PO ONE (20:24)
--- NOTE | 2021-01-31 20:25 | CR ---
Chest: 2 views of the chest were obtained. Comparison: Prior chest x-ray of 03/01/17. Heart size and mediastinum are within normal limits. Lungs are clear with no acute parenchymal change. Bony structures show slight anterior wedging within the lower thoracic spine which appears to be old. No acute osseous abnormality is appreciated. Impression: 1. Nothing acute is seen on 2 view chest x-ray. Diagnostic code #2
[2021-01-31] MEDS ORDERED: Ibuprofen 600 MG Tab PO ONE (20:28)
== END 2021-01-31 20:43 | disposition home or self-care (01) ==
LOC: JD.ED 18:25
DX: R07.89 Other chest pain (principal); E87.6 Hypokalemia; K21.9 Gastro-esophageal reflux disease without esophagitis; R56.9 Unspecified convulsions; Z79.899 Other long term (current) drug therapy; Z88.1 Allergy status to other antibiotic agents
CPT/HCPCS: 36415; 71046; 80053; 84484; 85007; 85027; 85379; 93005; 99285; A9270

== ENCOUNTER 2021-10-16 12:07 | Emergency (ER) | payer OTHER ==
[2021-10-16 12:35] VITALS: BP 138/58; PULSE 72
[2021-10-16] MEDS ORDERED: Sodium Chloride 0.9% 10 ML Syringe FLUSH PRN (12:48)
[2021-10-16] MEDS ORDERED: Aspirin 81 MG Tab.Chew PO ONE (12:48)
[2021-10-16 13:39] LABS: ESTIMATED GFR > 60 mL/min (>60)
== END 2021-10-16 14:43 | disposition home or self-care (01) ==
LOC: JD.ED 12:07
DX: R07.89 Other chest pain (principal); K21.9 Gastro-esophageal reflux disease without esophagitis; Z86.16 Personal history of COVID-19; Z88.1 Allergy status to other antibiotic agents; Z79.899 Other long term (current) drug therapy
CPT/HCPCS: 36415; 71045; 80053; 84484; 85025; 85379; 93005; 99285; A9270; 93010; 99284

== ENCOUNTER 2021-11-10 11:30 | Emergency (ER) | payer OTHER ==
[2021-11-10 11:44] VITALS: BP 142/65; PULSE 65
[2021-11-10] MEDS ORDERED: Sodium Chloride 0.9% 10 ML Syringe FLUSH PRN (12:05)
[2021-11-10 12:53] LABS: ESTIMATED GFR 111 mL/min (>60)
[2021-11-10] MEDS ORDERED: Ketorolac 30 MG/ML SDV IVPUSH ONE (13:41)
[2021-11-10] MEDS ORDERED: diphenhydrAMINE 50 MG/ML SDV IVPUSH ONE (13:41)
[2021-11-10] MEDS ORDERED: Metoclopramide 10 MG/2 ML SDV IVPUSH ONE (13:41)
[2021-11-10] MEDS ORDERED: Sodium Chloride 0.9% 1,000 ML IV ONE (13:41)
== END 2021-11-10 16:40 | disposition home or self-care (01) ==
LOC: JD.ED 11:30
DX: G43.809 Other migraine, not intractable, without status migrainosus (principal); K21.9 Gastro-esophageal reflux disease without esophagitis; F41.9 Anxiety disorder, unspecified; F32.A Depression, unspecified; Z79.899 Other long term (current) drug therapy; Z88.1 Allergy status to other antibiotic agents
CPT/HCPCS: 70450; 80053; 80175; 81003; 82550; 83605; 83735; 85025; 86140; 96361; 96374; 96375; 99284; J1200; J1885; J2765; J3490; J7030; 36415

== ENCOUNTER 2022-05-01 16:12 | Emergency (ER) | payer SELFPAY ==
[2022-05-01] MEDS ORDERED: Sodium Chloride 0.9% 10 ML Syringe FLUSH PRN (16:39)
[2022-05-01] MEDS ORDERED: Lidocaine 1% 10 ML MDV INJECT ONE (16:39)
[2022-05-01 16:55] VITALS: PULSE 92
[2022-05-01] MEDS ORDERED: Acetaminophen 325 MG Tab PO STA (17:15)
[2022-05-01 17:57] LABS: ESTIMATED GFR 107 mL/min (>60)
[2022-05-01 19:42] VITALS: BP 125/60
== END 2022-05-01 18:45 | disposition home or self-care (01) ==
LOC: JD.ED 16:12
DX: R56.9 Unspecified convulsions (principal); S01.81XA Laceration without foreign body of other part of head, initial encounter; K21.9 Gastro-esophageal reflux disease without esophagitis; Z88.1 Allergy status to other antibiotic agents; Z79.899 Other long term (current) drug therapy; W18.30XA Fall on same level, unspecified, initial encounter
CPT/HCPCS: 12013; 36415; 70450; 80053; 80307; 85025; 99285; A9270

== ENCOUNTER 2022-12-08 17:26 | Emergency (ER) | payer SELFPAY ==
[2022-12-08 18:45] LABS: BASOPHILS ABSOLUTE AUTO 0.05 K/mm3 (0.01-0.08); BASOPHILS PERCENT AUTO 0.7 % (0.1-1.2); EOSINOPHILS ABSOLUTE AUTO 0.06 K/mm3 (0.04-0.36); EOSINOPHILS PERCENT AUTO 0.8 (0.7-5.8); HEMATOCRIT 41.1 % (34.1-44.9); HEMOGLOBIN 13.1 gm/dl (11.2-15.7); IMMATURE GRAN ABSOLUTE AUTO 0.01 K/mm3 (0.00-0.10); IMMATURE GRAN PERCENT AUTO 0.1 % (<=1.0); LYMPHOCYTES ABSOLUTE AUTO 1.77 K/mm3 (1.18-3.74); LYMPHOCYTES PERCENT AUTO 24.6 % (19.3-51.7); MEAN CORPUSCULAR HEMOGLOBIN 27.9 pg (25.6-32.2); MEAN CORPUSCULAR HGB CONC 31.9 g/dl (32.2-35.5); MEAN PLATELET VOLUME 9.6 fl (9.4-12.3); MONOCYTES ABSOLUTE AUTO 0.48 K/mm3 (0.24-0.36); MONOCYTES PERCENT AUTO 6.7 % (4.7-12.5); NEUTROPHILS ABSOLUTE AUTO 4.83 K/mm3 (1.56-6.13); NEUTROPHILS PERCENT AUTO 67.1 % (34.0-71.1); PLATELET COUNT,PLT 283 K/mm3 (182-369); RED BLOOD CELL COUNT 4.69 M/mm3 (3.98-5.22)
[2022-12-08 18:46] LABS: MEAN CORPUSCULAR VOLUME 87.6 fl (79.4-94.8)
[2022-12-08 18:57] LABS: A/G RATIO 1.2 (1-2); ALBUMIN 3.8 g/dl (3.4-5.0); ANION GAP 13.2 (5-15); BILIRUBIN TOTAL 0.5 mg/dL (0.2-1.0); BUN/CREATININE RATIO 5.6 (14-18); CALCIUM 8.9 mg/dL (8.5-10.1); CREATININE 0.9 mg/dL (0.55-1.02); EST CRCL DRUG DOSING (CG) 58.79 mL/min; POTASSIUM,K 4.2 mEq/L (3.5-5.1)
[2022-12-08] MEDS ORDERED: Benztropine 1 MG Tab PO ONE (19:21)
[2022-12-08] MEDS ORDERED: Sodium Chloride 0.9% 1,000 ML IV ONE (19:21)
[2022-12-08] MEDS ORDERED: Haloperidol Lactate 5 MG/ML SDV IM ONE (19:21)
[2022-12-08] MEDS ORDERED: Ondansetron 4 MG/2 ML SDV IVPUSH ONE (19:21)
[2022-12-08 19:57] LABS: BARBITURATE SCREEN,URINE NEGATIVE (CUTOFF=200); BENZODIAZEPINES SCREEN,URINE NEGATIVE (CUTOFF=150); BUPRENORPHINE SCREEN,URINE NEGATIVE (CUTOFF=10); METHADONE SCREEN, URINE NEGATIVE (CUTOFF=200); METHAMPHETAMINES SCREEN, URINE NEGATIVE (CUTOFF=500); OXYCODONE SCREEN,URINE NEGATIVE (CUT0FF=100); PROPOXYPHENE SCREEN,URINE NEGATIVE (CUTOFF=300); THC SCREEN,URINE 20 NG/ML PRESUMPTIVE POSITIVE (CUTOFF=50)
[2022-12-08 19:58] LABS: AMPHETAMINES SCREEN, URINE NEGATIVE (CUTOFF=500)
[2022-12-08 21:28] VITALS: PULSE 67
[2022-12-08 21:29] VITALS: BP 133/69
== END 2022-12-08 21:44 | disposition home or self-care (01) ==
LOC: JD.ED 17:26
DX: G43.809 Other migraine, not intractable, without status migrainosus (principal); K21.9 Gastro-esophageal reflux disease without esophagitis; Z86.16 Personal history of COVID-19; Z88.1 Allergy status to other antibiotic agents; Z79.899 Other long term (current) drug therapy
CPT/HCPCS: 36415; 80053; 80306; 80307; 82947; 85025; 96372; 96374; 99284; A9270; J1630; J2405; J7030

== ENCOUNTER 2023-02-25 16:38 | Emergency (ER) | payer SELFPAY ==
[2023-02-25] MEDS ORDERED: lamoTRIgine 100 MG Tab PO ONE (18:07)
[2023-02-25 18:17] LABS: BASOPHILS ABSOLUTE AUTO 0.1 K/mm3 (0.0-0.2); BASOPHILS PERCENT AUTO 0.7 % (0.0-1.0); EOSINOPHILS PERCENT AUTO 0.4 % (0.0-6.0); HEMATOCRIT 39.2 % (37.0-47.0); HEMOGLOBIN 12.9 gm/dl (12.0-16.0); IMMATURE GRAN ABSOLUTE AUTO 0.02 K/mm3 (0.00-0.05); IMMATURE GRAN PERCENT AUTO 0.3 % (0.0-0.4); LYMPHOCYTES ABSOLUTE AUTO 0.7 K/mm3 (1.0-4.8); LYMPHOCYTES PERCENT AUTO 9.5 % (24.0-44.0); MEAN CORPUSCULAR HEMOGLOBIN 28.9 pg (28.0-32.0); MEAN CORPUSCULAR HGB CONC 32.9 g/dl (32.0-36.0); MEAN CORPUSCULAR VOLUME 87.9 fl (83.0-99.0); MEAN PLATELET VOLUME 8.6 fl (9.4-12.3); MONOCYTES ABSOLUTE AUTO 0.5 K/mm3 (0.0-0.8); MONOCYTES PERCENT AUTO 6.2 % (0.0-8.0); NEUTROPHILS ABSOLUTE AUTO 6.1 K/mm3 (1.8-7.7); NEUTROPHILS PERCENT AUTO 82.9 % (41.0-71.0); PLATELET COUNT,PLT 215 K/mm3 (150-400); RED BLOOD CELL COUNT 4.46 M/mm3 (4.10-5.30)
[2023-02-25 19:17] LABS: A/G RATIO 1.2 (1-2); ALBUMIN 3.7 g/dl (3.4-5.0); BILIRUBIN TOTAL 0.6 mg/dL (0.2-1.0); BUN/CREATININE RATIO 8.6 (14-18); CALCIUM 8.9 mg/dL (8.5-10.1); CREATININE 0.7 mg/dL (0.55-1.02); EST CRCL DRUG DOSING (CG) 77.77 mL/min; PROTEIN TOTAL,TP 6.7 g/dl (6.4-8.2)
[2023-02-25] MEDS ORDERED: Potassium Chloride 20 MEQ Tab.ER PO ONE (19:32)
[2023-02-25 20:20] VITALS: BP 126/53; PULSE 102
== END 2023-02-25 20:10 | disposition home or self-care (01) ==
LOC: JD.ED 16:38
DX: R56.9 Unspecified convulsions (principal); E87.6 Hypokalemia; K21.9 Gastro-esophageal reflux disease without esophagitis; Z86.16 Personal history of COVID-19; Z88.1 Allergy status to other antibiotic agents; Z79.899 Other long term (current) drug therapy
CPT/HCPCS: 36415; 70450; 80053; 85025; 99284; A9270; 99283

== ENCOUNTER 2023-05-09 06:51 | Emergency (ER) | payer SELFPAY ==
[2023-05-09] MEDS ORDERED: HYDROmorphone 0.5 MG/0.5 ML Syringe IVPUSH ONE (07:17)
[2023-05-09] MEDS ORDERED: Metoclopramide 10 MG/2 ML SDV IVPUSH ONE (07:17)
[2023-05-09] MEDS ORDERED: Sodium Chloride 0.9% 10 ML Syringe FLUSH PRN (07:28)
[2023-05-09] MEDS ORDERED: Iopamidol 612 MG/ML 100 ML Bottle IVPUSH ONE (07:28)
[2023-05-09] MEDS ORDERED: Dextrose 5%-Lactated Ringers 1,000 ML IV SCH (07:30)
[2023-05-09 09:01] VITALS: BP 113/52; PULSE 89
== END 2023-05-09 08:51 | disposition home or self-care (01) ==
LOC: JD.ED 06:51
DX: S22.32XA Fracture of one rib, left side, initial encounter for closed fracture (principal); S20.212A Contusion of left front wall of thorax, initial encounter; K21.9 Gastro-esophageal reflux disease without esophagitis; Z86.16 Personal history of COVID-19; Z79.899 Other long term (current) drug therapy; Z88.1 Allergy status to other antibiotic agents; W18.2XXA Fall in (into) shower or empty bathtub, initial encounter
CPT/HCPCS: 71260; 96361; 96374; 96375; 99283; J1170; J2765; J3490; J7121; Q9967

== ENCOUNTER 2023-09-23 12:46 | Emergency (ER) | payer SELFPAY ==
[2023-09-23] MEDS: levETIRAcetam 500 MG/5 ML SDV IVPUSH ONE (13:35)
[2023-09-23 13:39] LABS: BASOPHILS PERCENT AUTO 0.7 % (0.0-1.0); EOSINOPHILS PERCENT AUTO 0.2 % (0.0-6.0); HEMATOCRIT 41.7 % (37.0-47.0); HEMOGLOBIN 13.9 gm/dl (12.0-16.0); IMMATURE GRAN ABSOLUTE AUTO 0.02 K/mm3 (0.00-0.05); IMMATURE GRAN PERCENT AUTO 0.4 % (0.0-0.4); LYMPHOCYTES ABSOLUTE AUTO 0.5 K/mm3 (1.0-4.8); LYMPHOCYTES PERCENT AUTO 9.3 % (24.0-44.0); MEAN CORPUSCULAR HEMOGLOBIN 29.6 pg (28.0-32.0); MEAN CORPUSCULAR HGB CONC 33.3 g/dl (32.0-36.0); MEAN CORPUSCULAR VOLUME 88.7 fl (83.0-99.0); MEAN PLATELET VOLUME 8.7 fl (9.4-12.3); MONOCYTES ABSOLUTE AUTO 0.2 K/mm3 (0.0-0.8); NEUTROPHILS ABSOLUTE AUTO 4.9 K/mm3 (1.8-7.7); NEUTROPHILS PERCENT AUTO 85.4 % (41.0-71.0); PLATELET COUNT,PLT 194 K/mm3 (150-400)
[2023-09-23 14:06] LABS: INR 0.97; PROTHROMBIN TIME 10.4 SECONDS (9.7-12.0)
[2023-09-23 14:14] LABS: A/G RATIO 1.3 (1-2); ALBUMIN 3.5 g/dl (3.4-5.0); ANION GAP 12.5 (5-15); BILIRUBIN TOTAL 0.6 mg/dL (0.2-1.0); BUN/CREATININE RATIO 8.8 (14-18); CALCIUM 8.7 mg/dL (8.5-10.1); CREATININE 0.8 mg/dL (0.55-1.02); EST CRCL DRUG DOSING (CG) 85.81 mL/min; MAGNESIUM 1.8 mg/dL (1.8-2.4); PHOSPHORUS 2.2 mg/dL (2.6-4.7); POTASSIUM,K 3.5 mEq/L (3.5-5.1); PROTEIN TOTAL,TP 6.3 g/dl (6.4-8.2)
[2023-09-23 15:25] LABS: APPEARANCE,URINE CLEAR (Clear); BILIRUBIN,URINE NEGATIVE (Negative); COLOR,URINE YELLOW (Yellow); GLUCOSE,URINE NEGATIVE (Negative); KETONES,URINE TRACE (Negative); LEUKOCYTE ESTERASE,URINE TRACE (Negative); NITRITE,URINE POSITIVE (Negative); OCCULT BLOOD,URINE NEGATIVE (Negative); PROTEIN,URINE 1+ (Negative); UROBILINOGEN,URINE 0.2 (0.2-1.0)
[2023-09-23 16:07] LABS: RBC,URINE 0-5 /hpf (0-5); SQUAMOUS EPITHELIAL CELLS,UR 0-5 /hpf (0-5)
[2023-09-23 16:08] LABS: BACTERIA,URINE MANY /hpf (FEW); MUCUS,URINE FEW /hpf (FEW)
[2023-09-23] MEDS ORDERED: cefTRIAXone 1 GM in Sodium Chloride 0.9% 100 ML IV ONE (16:40)
[2023-09-23] MEDS: Ketorolac 30 MG/ML SDV IVPUSH ONE (17:18)
[2023-09-23] MEDS: Sulfamethoxazole/Trimethoprim 800-160 MG Tab PO ONE (17:19)
[2023-09-23 19:25] VITALS: BP 141/66; PULSE 89
== END 2023-09-23 17:33 | disposition home or self-care (01) ==
LOC: JD.ED 12:46
DX: R56.9 Unspecified convulsions (principal); N39.0 Urinary tract infection, site not specified; K21.9 Gastro-esophageal reflux disease without esophagitis; Z88.1 Allergy status to other antibiotic agents; Z86.16 Personal history of COVID-19; Z90.710 Acquired absence of both cervix and uterus; Z79.899 Other long term (current) drug therapy
CPT/HCPCS: 36415; 70450; 80053; 81001; 81003; 83735; 84100; 85025; 85610; 87086; 93005; 96374; 96375; 99285; A9270; J1885; J1953; 87088; 87186; 99284

== ENCOUNTER → 2023-12-13 | Day surgery (SDC) | payer SELFPAY ==
[~2023-12-13] MED LIST: Lidocaine 1% 4 ML ONE; Lidocaine 1% 5 ML VIAL ONE; Midazolam 1 MG/ML 2 ML SDV ONE; Propofol 200 MG/20 ML SDV ONE; Sodium Chloride 0.9% 10 ML Syringe FLUSH PRN; Sodium Chloride 0.9% 10 ML Syringe FLUSH SCH; Sodium Chloride 0.9% 100 ML IV SCH; fentaNYL 100 MCG/2 ML SDV ONE
[2023-12-13] MEDS: Lactated Ringers 1,000 ML IV SCH (07:30)
[2023-12-13 10:06] LABS: ANION GAP 14.4 (5-15); CALCIUM 8.8 mg/dL (8.5-10.1); CREATININE 0.6 mg/dL (0.55-1.02); EST CRCL DRUG DOSING (CG) 73.41 mL/min; POTASSIUM,K 3.4 mEq/L (3.5-5.1)
[2023-12-13] MEDS: Iopamidol 755 Mg/ML 100 ML Bottle IVPUSH ONE (10:42)
[2023-12-13] MEDS: Sodium Chloride 0.9% 10 ML Syringe FLUSH PRN (10:43)
[2023-12-13 11:06] LABS: APPEARANCE,URINE CLOUDY (Clear); BILIRUBIN,URINE 1+ (Negative); COLOR,URINE YELLOW (Yellow); GLUCOSE,URINE NEGATIVE (Negative); KETONES,URINE 4+ (Negative); LEUKOCYTE ESTERASE,URINE TRACE (Negative); NITRITE,URINE NEGATIVE (Negative); OCCULT BLOOD,URINE NEGATIVE (Negative); PH,URINE 5.5 (5.0-8.0); PROTEIN,URINE TRACE (Negative); UROBILINOGEN,URINE 0.2 (0.2-1.0)
[2023-12-13 11:55] LABS: RBC,URINE 0-5 /hpf (0-5)
[2023-12-13 11:56] LABS: BACTERIA,URINE FEW /hpf (FEW); EPITHELIAL CELLS,URINE 0-5 /hpf (0-5); MUCUS,URINE FEW /hpf (FEW); WBC,URINE 20-30 /hpf (0-5)
[2023-12-13 12:23] VITALS: BP 128/74; PULSE 68
== END ==
LOC: JD.SDS 07:07
PROVIDERS: ATTEND Surgery
DX: Z12.11 Encounter for screening for malignant neoplasm of colon (principal); K29.50 Unspecified chronic gastritis without bleeding; K21.00 Gastro-esophageal reflux disease with esophagitis, without bleeding; K57.30 Diverticulosis of large intestine without perforation or abscess without bleeding; F41.9 Anxiety disorder, unspecified; F32.A Depression, unspecified; Z87.891 Personal history of nicotine dependence; Z79.899 Other long term (current) drug therapy; Z88.1 Allergy status to other antibiotic agents
CPT/HCPCS: 36415; 43239; 45378; 70470; 70491; 80048; 81001; 87086; J2250; J2704; J3010; J3490; J7120; Q9967; 00813